=== PATIENT | female | born 1940 | race Caucasian/White ===

== ENCOUNTER 2018-03-22 08:02 | Inpatient (IN) | payer MEDICARE ==
--- NOTE | 2018-03-22 08:22 | CT ---
CT BRAIN WITHOUT CONTRAST: Date: 03/22/18 HISTORY: Right-sided upper extremity weakness and numbness. FINDINGS: No evidence of infarct, hemorrhage, midline shift, or abnormal extra-axial fluid collections are seen . The ventricular size is appropriate and the basilar cisterns are patent. The bony calvarium is inta ct. The visualized paranasal sinuses and mastoid air cells are well aerated. IMPRESSION: No CT evidence of acute intracranial process. Discussed over the telephone with ER physician, Dr. Jay, at 0811 hours. CODE CR. POS: [facility]
[2018-03-22 08:34] LABS: #Eosinphils 0.1 thou/uL (0.0-0.7); #Lymphocytes 1.6 thou/uL (1.20-3.40); #Neutrophils 4.5 thou/uL (1.40-6.50); %Basophils 0.6 % (0.0-1.0); %Lymphocytes 21.7 % (21.0-51.0); %Monocytes 13.3 % (0.0-10.0); %Neutrophils 62.4 % (42.0-75.0); Hemoglobin 13.4 g/dL (12.0-16.0); Mean Corpuscular HGB CONC 33.5 g/dL (32.0-36.0); Mean Corpuscular Hemoglobin 31.8 pg (27.0-31.0); Mean Platelet Volume 7.4 fL (7.4-10.4); Platelet Count 205 thou/uL (130-400); RBC Distribution Width 12.7 % (11.5-14.5); White Blood Cell (WBC) Count 7.2 thou/uL (4.8-10.8)
[2018-03-22 08:48] LABS: PTT 25.4 SEC (22.9-36.1); Prothrombin Time 12.9 SEC (12.0-14.7)
[2018-03-22 08:49] LABS: ALT (SGPT) 13 U/L (8-55); AST (SGOT) 17 U/L (5-34); Albumin 3.9 g/dL (3.4-4.8); Alkaline Phosphatase 60 U/L (40-150); Anion Gap 13 mmol/L (10-20); BUN (Urea Nitrogen) 22 mg/dL (9.8-20.1); Bilirubin, Total 0.6 mg/dL (0.2-1.2); CK (CPK) 44 U/L (29-168); Calc. Creatinine Clearance 0 mL/min (70-130); Calcium 9.2 mg/dL (7.8-10.44); Carbon Dioxide 25 mmol/L (23-31); Chloride 95 mmol/L (98-107); Estimated GFR-MDRD 54; Globulin 2.9 g/dL (2.4-3.5); Glucose 92 mg/dL (83-110); Potassium 3.9 mmol/L (3.5-5.1); Protein, Total 6.8 g/dL (6.0-8.3); Sodium 129 mmol/L (136-145)
--- NOTE | 2018-03-22 08:50 | CT ---
CTA HEAD WITH IV CONTRAST AND 3D POSTPROCESSING CTA NECK WITH IV CONTRAST AND 3D POSTPROCESSING: Date: 03/22/18 HISTORY: Stroke symptoms, right hand numbness. FINDINGS: There is good flow in the vertebrobasilar and carotid artery systems bilaterally. No significant sten osis, major branch occlusion, or aneurysm formation is seen. Vascular calcifications are present. There are degenerative changes in the spine. There is a small air fluid level in the right maxillary sinus. The airway is patent. There is evidence of old granulomatous disease in the upper chest. Parot id and submandibular glands are normal. No cervical lymphadenopathy seen. IMPRESSION: No evidence of high grade stenosis, major branch occlusion, or aneurysm formation. Discussed over the telephone with ER physician, Dr. Jay, and 0830 hours. CODE CR. POS: [facility]
[2018-03-22] MEDS ORDERED: Ondansetron PF 4 MG/2 ML Vial IVP PRN (10:00)
[2018-03-22] MEDS ORDERED: Acetaminophen 325 MG TAB PO PRN (10:00)
[2018-03-22] MEDS ORDERED: Ondansetron ODT 4 MG TAB SL PRN (10:00)
[2018-03-22 11:35] VITALS: BMI 29.6
[2018-03-22] MEDS ORDERED: Guaifenesin DM 100-10/5 ML UDCUP PO PRN (13:19)
[2018-03-22] MEDS ORDERED: Senokot S 8.6-50 MG TAB PO PRN (13:19)
[2018-03-22] MEDS: Sodium Chloride 0.9% 1,000 ML IV SCH (14:01)
--- NOTE | 2018-03-22 14:14 | HP ---
REASON FOR ADMISSION: Acute CVA with right upper extremity weakness. HISTORY OF PRESENTING ILLNESS: The patient gives history of getting up around 6:00 in the morning. She felt normal. An hour later, the patient was trying to grab some milk from her refrigerator and was not able to hold in her right hand. She also felt numbness and paresthesias in the right upper extremity all the way from shoulder. She has been having cramps in both lower extremities off and on for last few days at night. No history of diarrhea or nausea. As this lasted for a few minutes, the patient got concerned that she might be having a stroke, hence came to emergency room. The patient still has paresthesias in the right hand and feels that her strength is not the same as the left. She is a right-handed person. On arrival, the patient had blood pressures of 214/86. at bedside adds that from last one month or so, her blood pressure has been creeping up. From last week, she started Benicar HCT for hypertension. She normally runs 120/70. This is something new from last one month. No personal stress in the family. She has also had nasal congestion and stuffiness from last 3 to 4 weeks now. She thinks it is allergies. PAST MEDICAL AND SURGICAL HISTORY: Hypertension, eczema. No prior surgical history. No prior cardiac workup including stress test. No prior stroke or TIA. No history of colonoscopy. CURRENT MEDICATIONS: 1. Benicar HCT 20/12.5 mg p.o. daily. 2. Hydroxyzine 10 mg p.o. twice daily. ALLERGIES: NO KNOWN DRUG ALLERGIES. PERSONAL HISTORY: Does not abuse alcohol or drugs. No history of smoking. She lives with her . FAMILY HISTORY: Mother at the age of 85 years. She of natural causes. Father at the age of 80. He has had history of ND, TIAs, and colon cancer. Code status is full. is power of finance attorney. REVIEW OF SYSTEMS: CONSTITUTIONAL: Negative for weight loss or gain, ability to conduct usual activities. SKIN: Negative for rash, itching. EYES: Negative for double vision, pain. ENT/MOUTH: Negative for nose bleeding, neck stiffness, pain, tenderness. CARDIOVASCULAR: Negative for palpitations, dyspnea on exertion, orthopnea. RESPIRATORY: Negative for shortness of breath, wheezing, cough, hemoptysis, fever or night sweats. GASTROINTESTINAL: Negative for poor appetite, abdominal pain, heartburn, nausea, vomiting, constipation, or diarrhea. GENITOURINARY: Negative for urgency, frequency, dysuria, nocturia. MUSCULOSKELETAL: Negative for pain, swelling. NEUROLOGIC/PSYCHIATRIC: Negative for anxiety, depression. ALLERGY/IMMUNOLOGIC: Negative for skin rash, bleeding tendency. PHYSICAL EXAMINATION: GENERAL: The patient is a 77-year-old female who is currently not in any acute distress. VITAL SIGNS: Blood pressure 185/80, pulse 70 per minute, respiratory rate 20 per minute, temperature 98.3 degrees Fahrenheit, saturating 97% on room air. On arrival, her blood pressure was 214/86. NECK: Supple. No elevated JVD. EYES: Extraocular muscles intact. Pupils reacting to light. Oral cavity, mucous membranes are dry. No exudates or congestion. CARDIOVASCULAR: S1 and S2 heard. Regular rhythm. RESPIRATORY: Air entry 1+ bilateral. No rales or rhonchi. ABDOMEN: Soft. Bowel sounds heard. No tenderness, rigidity, or guarding. EXTREMITIES: No peripheral edema or calf tenderness. VASCULAR: Peripheral pulses 2+ bilateral. No ischemic ulcerations or gangrene. CENTRAL NERVOUS SYSTEM: Mild facial droop seen on the left side. Cranial nerves otherwise grossly intact. Motor system, strength is 4 to 5/5 in the right upper extremity when compared to the left. Both lower extremity strength is 5/5. Reflexes are 2+ bilateral. Babinski is downgoing. Sensory system grossly intact to touch. Gait was not tested. PSYCHIATRIC: The patient is a bit anxious, otherwise no hallucinations or delusions. LABORATORY DATA: EKG done shows normal sinus rhythm at 77 beats per minute with the signs of LVH seen. White count of 7, hemoglobin and hematocrit 13 and 39, platelet count 205, MCV is 95 with 62% neutrophils. PT, INR, PTT within normal limits. Serum sodium is 129, chloride 95, serum bicarbonate 25, BUN 22, creatinine 1.0, serum glucose 92. Liver enzymes within normal limits. First set of cardiac enzymes are negative. Albumin is 3.9. CT angio brain shows no high-grade stenosis, major branch occlusion, or aneurysm formation either in the brain or the carotids. CT of brain done shows no acute intracranial process. CLINICAL IMPRESSION AND PLAN: The patient will be admitted to stroke unit for hypertensive emergency with right upper extremity mild paresis when compared to left. The patient is a right-handed person. She also appears to have air fluid levels seen. A small air-fluid level is seen in the right maxillary sinus. She will be on stroke evidence based protocol. She will be on full-dose aspirin, Lipitor. The patient has mild hyponatremia and also her MCV is around 95. We will obtain B12 and folic acid levels. She will be on Procardia XL, small dose of Lopressor and Benicar. We will hold hydrochlorothiazide in view of hyponatremia. Echo with 2D Doppler for left ventricular function. An MRI brain without contrast will be obtained. Augmentin for left maxillary sinusitis. Serum and urine osmolalities will be obtained now and TSH level in the morning. Lipid profile in the morning as well. We will continue to closely monitor her on stroke unit. Job ID: [id number]
--- NOTE | 2018-03-22 15:31 | MRI ---
MRI BRAIN WITHOUT CONTRAST: DATE: 03/22/18 HISTORY: Right hand weakness that is getting better. FINDINGS: There is a small area of restricted diffusion in the left anterior parietal cortex. Multiple foci of T2 prolongation in the periventricular white matter consistent with chronic small vessel ischemic dis ease. No evidence of hemorrhage, midline shift, or abnormal extra-axial fluid collections are seen. T here is mucosal disease in the paranasal sinuses. IMPRESSION: Small, acute left parietal lobe cortical infarction. POS: [facility]
[2018-03-22] MEDS ORDERED: Clopidogrel Bisulfate 75 MG TAB PO SCH (16:45)
[2018-03-22] MEDS: Acetaminophen 325 MG TAB PO PRN ×2 (17:14→22:20)
[2018-03-22] MEDS: Atorvastatin Calcium 40 MG TAB PO SCH (21:08)
[2018-03-22] MEDS: Metoprolol Tartrate 25 MG TAB PO SCH (21:08)
[2018-03-22] MEDS: Amoxicillin/Potassium Clav 875 MG TAB PO SCH (21:08)
[2018-03-22] MEDS: Famotidine 20 MG TAB PO SCH (21:08)
[2018-03-23] MEDS: Sodium Chloride 0.9% 1,000 ML IV SCH (01:54)
[2018-03-23 06:16] LABS: #Basophils 0.1 thou/uL (0.0-0.2); #Eosinphils 0.2 thou/uL (0.0-0.7); #Lymphocytes 1.6 thou/uL (1.20-3.40); #Monocytes 0.6 thou/uL (0.11-0.59); #Neutrophils 3.8 thou/uL (1.40-6.50); %Basophils 1.2 % (0.0-1.0); %Eosinophils 2.5 % (0.0-10.0); %Lymphocytes 25.9 % (21.0-51.0); %Monocytes 9.9 % (0.0-10.0); %Neutrophils 60.6 % (42.0-75.0); Hemoglobin 13.3 g/dL (12.0-16.0); Mean Corpuscular HGB CONC 33.9 g/dL (32.0-36.0); Mean Corpuscular Hemoglobin 32.1 pg (27.0-31.0); Mean Corpuscular Volume 94.5 fL (78.0-98.0); Mean Platelet Volume 7.7 fL (7.4-10.4); Platelet Count 203 thou/uL (130-400); RBC Distribution Width 12.6 % (11.5-14.5); Red Blood Cell (RBC) Count 4.15 mill/uL (4.20-5.40); White Blood Cell (WBC) Count 6.2 thou/uL (4.8-10.8)
[2018-03-23 06:38] LABS: Anion Gap 10 mmol/L (10-20); BUN (Urea Nitrogen) 14 mg/dL (9.8-20.1); Calc. Creatinine Clearance 82 mL/min (70-130); Carbon Dioxide 23 mmol/L (23-31); Cardiac Risk 2.5 (Less than 4.5); Chloride 102 mmol/L (98-107); Cholesterol 171 mg/dl (< 200 Desired); Estimated GFR-MDRD 71; Glucose 91 mg/dL (83-110); HDL Cholesterol 69 mg/dL (>60 Neg Risk); LDL Cholesterol, Calculated 94 mg/dL; Potassium 3.9 mmol/L (3.5-5.1); Sodium 131 mmol/L (136-145); Triglycerides 42 mg/dL (Less than 150)
[2018-03-23] MEDS ORDERED: Aspirin 325 mg Enteric Coated Tablet PO SCH (09:00)
[2018-03-23] MEDS: Amoxicillin/Potassium Clav 875 MG TAB PO SCH ×2 (10:24→20:36)
[2018-03-23] MEDS: NIFEdipine XL 30 MG TAB PO SCH (10:25)
[2018-03-23] MEDS: Famotidine 20 MG TAB PO SCH ×2 (10:27→20:36)
[2018-03-23] MEDS: Metoprolol Tartrate 25 MG TAB PO SCH ×2 (10:28→20:36)
[2018-03-23] MEDS: Clopidogrel Bisulfate 75 MG TAB PO SCH (10:28)
[2018-03-23] MEDS: Enoxaparin Sodium 40 MG/0.4 ML SYRINGE SC SCH (10:31)
--- NOTE | 2018-03-23 10:49 | PDOC.PN ---
- Subjective Encounter Start Date: 03/23/18 Encounter Start Time: 09:00 Subjective: her right hand is feeling better and improving with little parasthesias now -: is wanting to go home -: at bedside, pt is walking, no difficulty eating - Objective Resuscitation Status - Order Detail: 03/22/18 13:15 Resuscitation Status Routine Resuscitation Status: FULL: Full Resuscitation MAR Reviewed: Yes Vital Signs & Weight: Vital Signs (12 hours) Temp Pulse Resp BP BP Pulse Ox 03/23/18 10:25 70 177/73 H 03/23/18 08:01 97.9 F 72 20 149/79 H 97 03/23/18 03:52 98.6 F 69 16 159/79 H 97 03/23/18 00:00 98.5 F 68 16 155/82 H 93 L Weight Weight 189 lb 2 oz I&O: 03/22/18 03/23/18 03/24/18 06:59 06:59 06:59 Intake Total 600 Balance 600 Result Diagrams: 03/23/18 06:08 03/23/18 06:08 Phys Exam - Physical Examination HEENT: PERRLA, moist MMs Neck: no JVD, supple Respiratory: no wheezing, no rales Cardiovascular: RRR, no significant murmur Gastrointestinal: soft, non-tender, positive bowel sounds Musculoskeletal: no edema, pulses present Right UE parasthesias, strength almost equal to left side Psychiatric: normal affect, A&O x 3 Dx/Plan (1) Acute CVA (cerebrovascular accident) Code(s): I63.9 - CEREBRAL INFARCTION, UNSPECIFIED Status: Acute Comment: left parietal cva (2) Hypertensive emergency Code(s): I16.1 - HYPERTENSIVE EMERGENCY Status: Resolved - Plan is on plavix, lopressor, procardia and lipitor -: await echo results, neuro consult -: likely dc plan when echo is resulted * . Review of Systems - Medications/Allergies Allergies/Adverse Reactions: Allergies Allergy/AdvReac Type Severity Reaction Status Date / Time No Known Allergies Allergy Verified 03/22/18 11:42 Medications: Current Medications Acetaminophen (Tylenol) 650 mg PO Q4H PRN PRN Reason: Headache/Fever/Mild Pain (1-3) Last Admin: 03/22/18 22:20 Dose: 650 mg Amoxicillin/Clavulanate Potassium (Augmentin) 875 mg PO Q12HR [facility] Last Admin: 03/23/18 10:24 Dose: 875 mg Atorvastatin Calcium (Lipitor) 40 mg PO HS [facility] Last Admin: 03/22/18 21:08 Dose: 40 mg Clopidogrel Bisulfate (Plavix) 75 mg PO DAILY [facility] Last Admin: 03/23/18 10:28 Dose: 75 mg Enoxaparin Sodium (Lovenox) 40 mg SC 0900 [facility] Last Admin: 03/23/18 10:31 Dose: 40 mg Famotidine (Pepcid) 20 mg PO BID [facility] Last Admin: 03/23/18 10:27 Dose: 20 mg Guaifenesin/Dextromethorphan (Robitussin Dm) 15 ml PO Q4H PRN PRN Reason: Cough Metoprolol Tartrate (Lopressor) 25 mg PO BID [facility] Last Admin: 03/23/18 10:28 Dose: 25 mg Nifedipine (Procardia Xl) 30 mg PO DAILY [facility] Last Admin: 03/23/18 10:25 Dose: 30 mg Olmesartan (Benicar) 20 mg PO DAILY [facility] Last Admin: 03/23/18 10:22 Dose: 20 mg Senna/Docusate Sodium (Senokot S) 2 tab PO BID PRN PRN Reason: Constipation Sodium Chloride (Flush - Normal Saline) 10 ml IVF PRN PRN PRN Reason: Saline Flush
[2018-03-23] MEDS: Atorvastatin Calcium 40 MG TAB PO SCH (20:36)
[2018-03-23] MEDS: Acetaminophen 325 MG TAB PO PRN (21:05)
[2018-03-24] MEDS: Acetaminophen 325 MG TAB PO PRN ×2 (04:25→09:16)
[2018-03-24 08:16] VITALS: TEMP 98
[2018-03-24] MEDS: Enoxaparin Sodium 40 MG/0.4 ML SYRINGE SC SCH (09:14)
[2018-03-24] MEDS: Metoprolol Tartrate 25 MG TAB PO SCH (09:15)
[2018-03-24] MEDS: Clopidogrel Bisulfate 75 MG TAB PO SCH (09:15)
[2018-03-24] MEDS: Amoxicillin/Potassium Clav 875 MG TAB PO SCH (09:15)
[2018-03-24] MEDS: NIFEdipine XL 30 MG TAB PO SCH (09:16)
[2018-03-24] MEDS: Famotidine 20 MG TAB PO SCH (09:16)
--- NOTE | 2018-03-24 10:20 | PDOC.PN ---
- Subjective Encounter Start Date: 03/24/18 Encounter Start Time: 09:00 Subjective: feels good, is amb in hallway - Objective Resuscitation Status - Order Detail: 03/22/18 13:15 Resuscitation Status Routine Resuscitation Status: FULL: Full Resuscitation MAR Reviewed: Yes Vital Signs & Weight: Vital Signs (12 hours) Temp Pulse Resp BP BP Pulse Ox 03/24/18 09:16 70 149/76 H 03/24/18 08:00 98.0 F 70 18 149/76 H 96 03/24/18 04:00 98.4 F 69 18 125/71 96 03/24/18 00:00 98.4 F 70 18 128/69 93 L Weight Weight 189 lb 2 oz I&O: 03/23/18 03/24/18 03/25/18 06:59 06:59 06:59 Intake Total 600 2340 240 Balance 600 2340 240 Result Diagrams: 03/23/18 06:08 03/23/18 06:08 Phys Exam - Physical Examination HEENT: PERRLA, moist MMs Neck: no JVD, supple Respiratory: no wheezing, no rales Cardiovascular: RRR, no significant murmur Gastrointestinal: soft, non-tender, positive bowel sounds Musculoskeletal: no edema, pulses present Neurological: moves all 4 limbs Psychiatric: normal affect, A&O x 3 Dx/Plan (1) Acute CVA (cerebrovascular accident) Code(s): I63.9 - CEREBRAL INFARCTION, UNSPECIFIED Status: Acute Comment: left parietal cva (2) Hypertensive emergency Code(s): I16.1 - HYPERTENSIVE EMERGENCY Status: Resolved - Plan hemostable -: dc pt home -: to f/u with PCP in 1 week * .
[2018-03-24 11:09] VITALS: BP 153/78
--- NOTE | 2018-03-24 13:05 | DIS ---
DATE OF ADMISSION: 03/22/2018 DATE OF DISCHARGE: 03/24/2018 DISCHARGE DISPOSITION: Home. PRIMARY DISCHARGE DIAGNOSES: 1. Acute left parietal cerebrovascular accident with right upper extremity paresthesias. 2. Hypertensive emergency on arrival, stable at present. PROCEDURES DONE DURING HOSPITALIZATION: 1. MRI brain showed small acute left parietal lobe cortical infarct. 2. CT angio of brain and neck done showed no high-grade stenosis, major branch occlusion, or aneurysm formation. 3. Echo with 2D Doppler showed EF of 55%-60%, moderate mitral regurgitation, moderate tricuspid regurgitation. No thrombus was seen in the cardiac chambers. 4. H and H 13 and 39, platelet count 203. Total cholesterol 171, triglycerides 42, LDL 94. HDL 69, TSH 3.65, BUN 14, creatinine 0.7. DISCHARGE MEDICATION: 1. Augmentin 875 mg p.o. twice daily for another five days for maxillary sinusitis. 2. Lipitor 10 mg daily. 3. Plavix 75 mg daily. 4. Metoprolol 25 mg twice daily. 5. Procardia XL 30 mg daily. 6. Olmesartan 20 mg daily. ALLERGIES: NO KNOWN DRUG ALLERGIES. DISCHARGE PLAN: The patient to follow up with primary care physician in one week. BRIEF COURSE DURING HOSPITALIZATION: The patient initially came in with complaints of right upper extremity weakness and paresthesias. She was essentially admitted to stroke unit for acute CVA. The patient also had systolic blood pressures of 214 and had hypertensive emergency. Her blood pressure was slowly deescalated in view of acute CVA. MRI done confirmed left parietal cortical infarct. Her hypertension is currently stable at the time of discharge. Echo with 2D Doppler done showed good ejection fraction with no thrombus. She is ambulating without any assistance in the hallway prior to discharge. The patient is to follow up with her primary care physician in one week. She is hemodynamically and neurologically stable prior to discharge. Job ID: [id number]
== END 2018-03-24 11:22 | disposition home or self-care (01) | DRG 65 ==
LOC: ERS 08:02 → 2SE 11:17
PROVIDERS: ADMIT Internal Medicine; ATTEND Internal Medicine
DX: I63.9 Cerebral infarction, unspecified (principal); I16.1 Hypertensive emergency; Z79.899 Other long term (current) drug therapy; R20.2 Paresthesia of skin; R29.701 NIHSS score 1
CPT/HCPCS: 36415; 36416; 70450; 70496; 70498; 70551; 80048; 80053; 80061; 82550; 83930; 83935; 84443; 84484; 85025; 85610; 85730; 90471; 90662; 93005; 93306; 94760; 96374; G0008; G8978-GP-CI; G8979-GP-CH; G8987-GO-CI; G8988-GO-CI; G8989-GO-CI; G9162-GN-CH; G9163-GN-CH; J1650; J3490

== ENCOUNTER 2020-02-08 09:59 | Inpatient (IN) | payer MEDICARE ==
[2020-02-08] MEDS ORDERED: Morphine 4 MG/ML VIAL ONE (10:58)
[2020-02-08] MEDS ORDERED: Ondansetron PF 4 MG/2 ML Vial ONE (10:59)
--- NOTE | 2020-02-08 11:00 | RAD ---
XR Hip Rt 2-3 View History: Fall Comparison: None. Findings: Mid cervical right femoral neck fracture with mild varus angulation and foreshortening. Obt urator ring is intact. Impression: Mid cervical right femoral neck fracture.
[2020-02-08 11:10] LABS: #Eosinphils 0.1 thou/uL (0.0-0.7); #Lymphocytes 0.8 thou/uL (1.20-3.40); #Monocytes 0.5 thou/uL (0.11-0.59); %Basophils 0.3 % (0.0-1.0); %Eosinophils 2.2 % (0.0-10.0); %Monocytes 7.6 % (0.0-10.0); %Neutrophils 77.9 % (42.0-75.0); Hemoglobin 12.3 g/dL (12.0-16.0); Mean Corpuscular HGB CONC 34.6 g/dL (32.0-36.0); Mean Corpuscular Hemoglobin 32.2 pg (27.0-31.0); Mean Corpuscular Volume 93.3 fL (78.0-98.0); Mean Platelet Volume 7.7 fL (7.4-10.4); Platelet Count 222 thou/uL (130-400); RBC Distribution Width 11.7 % (11.5-14.5); Red Blood Cell (RBC) Count 3.82 mill/uL (4.20-5.40); White Blood Cell (WBC) Count 6.5 thou/uL (4.8-10.8)
[2020-02-08 11:13] LABS: INR-International Normal Ratio 0.9; Prothrombin Time 12.1 sec (12.0-14.7)
[2020-02-08 11:20] LABS: ALT (SGPT) 12 U/L (8-55); AST (SGOT) 21 U/L (5-34); Albumin 3.8 g/dL (3.4-4.8); Alkaline Phosphatase 63 U/L (40-110); Anion Gap 11 mmol/L (10-20); BUN (Urea Nitrogen) 8 mg/dL (9.8-20.1); Bilirubin, Total 0.4 mg/dL (0.2-1.2); Calc. Creatinine Clearance 0 mL/min (70-130); Calcium 9.1 mg/dL (7.8-10.44); Carbon Dioxide 27 mmol/L (23-31); Chloride 89 mmol/L (98-107); Glucose 112 mg/dL (83-110); Potassium 3.7 mmol/L (3.5-5.1); Protein, Total 6.8 g/dL (6.0-8.3); Sodium 123 mmol/L (136-145)
[2020-02-08] MEDS ORDERED: Labetalol HCl 100 MG/20 ML VIAL ONE (11:22)
[2020-02-08 11:41] LABS: Bilirubin Negative (Negative); Blood, Urine Negative (Negative); Clarity Clear (Clear); Glucose, Urine (Dipstick) Normal (Negative); Ketone, Urine Negative (Negative); Leukocyte 25 Leu/uL (Negative); Nitrite Negative (Negative); Protein, Urine (Dipstick) Negative (Neg-Trace); RBC/HPF 0-3 HPF (0-3); Specific Gravity, Urine 1.004 (1.002-1.036); Squamous Epithelial 0-3 HPF (0-3); Urobilinogen Normal mg/dL (Less than 2); pH, Urine 7.5 (5.0-9.0)
[2020-02-08 11:42] LABS: Bacteria/HPF 1+ HPF (None Seen)
[2020-02-08] MEDS ORDERED: Morphine 2 MG/ML VIAL SLOW IVP PRN (11:51)
[2020-02-08] MEDS ORDERED: Ondansetron PF 4 MG/2 ML Vial IVP PRN (11:51)
[2020-02-08] MEDS ORDERED: Dextrose 5% in Water 1,000 ML IV PRN (11:51)
[2020-02-08] MEDS ORDERED: Dextrose 50% Abboject 50 ML SYRINGE SLOW IVP PRN (11:51)
[2020-02-08] MEDS ORDERED: Cyclobenzaprine 10 MG TAB PO PRN (11:58)
[2020-02-08] MEDS ORDERED: Ibuprofen 800 MG TAB PO PRN (11:58)
[2020-02-08] MEDS ORDERED: traMADol HCl 50 MG TAB PO PRN (11:58)
[2020-02-08] MEDS ORDERED: traMADol HCl 50 MG TAB PO SCH (12:00)
[2020-02-08] MEDS ORDERED: Sodium Chloride 0.9% 1,000 ML IV SCH ×3 (12:00→22:00)
--- NOTE | 2020-02-08 12:09 | RAD ---
Chest AP view INDICATION: Preop evaluation COMPARISON: September 01, 2009 FINDINGS: Lungs: No definite airspace consolidation is evident. There is mild subsegmental volume loss involvi ng both lower lobes. Cardiac silhouette: There is moderate cardiomegaly Pulmonary vasculature: Normal Pleural spaces: No pleural effusion or pneumothorax is demonstrated. Upper abdomen: No abnormality seen. Osseous structures: No acute osseous abnormality. Additional findings: None. IMPRESSION: Moderate cardiomegaly without evidence of cardiac decompensation. Subsegmental volume loss within bot h lower lobes.
[2020-02-08 12:55] LABS: Magnesium 1.7 mg/dL (1.6-2.6)
[2020-02-08 13:31] LABS: Phosphorus 1.9 mg/dL (2.3-4.7)
[2020-02-08 13:55] VITALS: BMI 27.6
[2020-02-08] MEDS ORDERED: SODIUM PHOSPHATE IVPB SCH (14:00)
[2020-02-08] MEDS ORDERED: Potassium Chloride 20 MEQ in Premix Bag 1 BAG IVPB SCH (14:00)
[2020-02-08] MEDS ORDERED: POTASSIUM CHLORIDE IVPB SCH (14:00)
[2020-02-08] MEDS ORDERED: [UNRECOGNIZED DRUG - OTHER] IVPB SCH (14:00)
[2020-02-08] MEDS: Acetaminophen 500 MG TAB PO SCH ×2 (14:11→17:06)
[2020-02-08] MEDS ORDERED: CEFAZOLIN 2 GM in Premix Bag 1 BAG IVPB SCH (16:45)
[2020-02-08] MEDS ORDERED: Magnesium 2 GM/50 ML 2 GM in Premix Bag 1 BAG IVPB SCH (16:45)
--- NOTE | 2020-02-08 16:56 | HP ---
This is Ethel Abel NP dictating a report for Adrian Hughes DO. REQUESTING PHYSICIAN: Kesha Lowe NP. CONSULTS: Orthopedic Surgery, Dr. Butler. CHIEF COMPLAINT: Mechanical fall, right hip pain. HISTORY OF PRESENT ILLNESS: This is a 79-year-old female with past medical history of hypertension and cerebral vascular accident in 2018, who presented to the emergency room after she tripped and fell. The patient states she was ambulating when her slipper got caught causing her to trip falling onto her right side. The patient denies hitting her head or losing consciousness. The patient denies any other injuries other than her right hip pain. The patient denies feeling weak, dizzy, short of breath or having chest pain prior to tripping and falling. The patient states that she is active and does not use any assistive devices to ambulate. The patient walks approximately 1-2 miles a day without becoming short of breath. The patient does report some balance issues since her stroke. The patient was evaluated in the emergency room and found to have a right femoral neck fracture. The patient does take Plavix daily in which her last dose was 6 a.m. this morning. The patient also took all of her medications including her blood pressure pills this morning and she last ate approximately at 5:30 this morning. The pain is currently controlled at this time. Orthopedic Surgery was consulted and Trauma Services was asked to admit the patient. The patient did arrive in the emergency room hypertensive and labetalol was given IV. The patient was also given a normal saline 500 mL bolus. REVIEW OF SYSTEMS: A 10-point review of systems is negative unless otherwise indicated in the above HPI. PAST MEDICAL HISTORY: Hypertension, eczema, cerebral vascular accident in 2018. PAST SURGICAL HISTORY: Denies. SOCIAL HISTORY: The patient lives in [place] with her . Denies alcohol use, denies illicit drug use, denies history of smoking. ALLERGIES: NO KNOWN DRUG ALLERGIES. CURRENT MEDICATIONS: Include: 1. Atorvastatin. 2. Metoprolol. 3. Plavix 75 mg q.a.m. PHYSICAL EXAMINATION: VITAL SIGNS: Blood pressure 176/83, pulse 77, respirations 20, temperature 98.9, SpO2 96% on room air. GENERAL: Well appearing elderly female awake, alert, in no distress, sitting up in bed. HEENT: Head is atraumatic and normocephalic. Pupils are equal bilateral, mucous membranes moist. NECK: No cervical spine tenderness. Normal range of motion of neck, trachea midline. No JVD. RESPIRATORY: Bilateral breath sounds clear, no wheezing, rales, or rhonchi. CARDIAC: Regular rate, regular rhythm, no murmurs, no pedal edema. ABDOMEN: Soft, nontender, nondistended. No guarding or rigidity. EXTREMITIES: Moves all extremities, neurovascularly intact x4, right lower extremity is mildly shortened. NEUROLOGIC: No focal deficits. GCS 15. LABORATORY DATA: WBC 6.5, RBC 3.82, hemoglobin 12.3, hematocrit 35.6. Sodium 123, potassium 3.7, chloride 89, BUN 8, creatinine 0.84, estimated GFR 66, glucose 112, calcium 9.1, phosphorus 1.9, magnesium 1.7, AST 21, ALT 12, alkaline phos 63. Troponin I less than 0.010, albumin 3.8. PT 12.1, INR 0.9, APTT 32.14. Urine grew positive leukocyte esterase, positive wbc 4 to 6, 1+ bacteria. Urine culture pending. 12-lead EKG: Impression: Sinus rhythm, rate 79, no ST or T-wave abnormalities. Right hip x-ray: Impression: Mid cervical right femoral neck fracture with mild varus angulation and shortening. Obturator ring is intact. Chest x-ray: Impression: There is moderate cardiomegaly. No effusion. Segmental volume loss within both lower lobes. ASSESSMENT: 1. Status post mechanical fall from standing. 2. Right femoral neck fracture. 3. Acute traumatic pain secondary to above. 4. Hyponatremia, chronic. 5. Cardiomegaly. 6. Urinary tract infection on admission. 7. History of hypertension and cerebral vascular accident. PLAN: Admit to the surgical floor. Regular diet as tolerated. Maintenance IV fluids normal saline 75 mL an hour. N.p.o. at midnight with plans for Orthopedic Surgery to take the patient to the OR for repair of the right femoral neck fracture. We will hold patient's Plavix. We will restart patient's hypertensive medication with hold parameters. Pain control. We will have PT and OT evaluate and treat postop. The patient will likely need inpatient rehab postop for continued physical and occupational therapy. Antibiotics for urinary tract infection and we will adjust when cultures return. 1 liter free waer restriction daily for hyponatremia. Repeat labs in the morning. The plan was discussed with the patient's who agrees. The plan was discussed with the attending who agrees. Job ID: [id number] [id number]
[2020-02-08] MEDS: hydrALAZINE 25 MG TAB PO SCH (17:06)
--- NOTE | 2020-02-08 17:16 | CON ---
DATE OF CONSULTATION: 02/08/2020 REQUESTING PHYSICIAN: Adrian Hughes DO CONSULTING PHYSICIAN: Houston Butler MD REASON FOR CONSULTATION: Right hip displaced femoral neck fracture. BRIEF CLINICAL HISTORY: Tatyana is a 79-year-old female who had a mechanical ground-level fall earlier this morning. She landed on her right hip, resulting in immediate pain. EMS was dispatched. The patient was brought to [facility] where plain radiographs confirmed a displaced femoral neck fracture. She is being admitted by the trauma team, and our service is being consulted for definitive orthopedic surgical management of this problem. PAST MEDICAL HISTORY: Significant for: 1. Hypertension. 2. Prior CVA with right-sided weakness. PAST SURGICAL HISTORY: Noncontributory. MEDICATIONS: She does take an antihypertensive. ALLERGIES: NO KNOWN DRUG ALLERGIES. SHE DENIES ANY CONTACT ALLERGIES. SOCIAL HISTORY: She is . She and her are retired. She lives locally. She denies any ethanol, tobacco, or illicit drug abuse. PHYSICAL EXAMINATION: VITAL SIGNS: See nurse's notes. HEENT: Head is normocephalic and atraumatic. Pupils equally round and reactive to light. Oropharynx is benign. CHEST: Clear to auscultation. HEART: Regular rhythm. ABDOMEN: Soft and benign. EXTREMITIES: Shortening in external rotation of the right lower extremity relative to the left is noted. The patient also keeps the hip in a flexed position for comfort. She is neurovascularly intact in the right lower extremity with full digital excursion. Distal pulses are +2 and good sensation. IMAGING STUDIES: Two views of right hip demonstrate a displaced femoral neck fracture, mid cervical in nature. IMPRESSION: 1. Right hip midcervical displaced femoral neck fracture. 2. Hypertension. 3. Residual weakness secondary to remote cerebrovascular accident. PLAN: 1. The risks, benefits, options, alternatives, and rationale for proceeding with a right hip hemiarthroplasty have been explained in great detail to the patient. She is ready to proceed. All questions were answered. No guarantee of outcome stated or implied. 2. N.p.o. after midnight. 3. Ancef 2 g on-call to OR. 4. Hold Plavix. 5. Please see orders. Job ID: [id number]
[2020-02-08] MEDS: traMADol HCl 50 MG TAB PO SCH (20:20)
[2020-02-08] MEDS: Famotidine 20 MG TAB PO SCH (20:21)
[2020-02-08] MEDS: Senokot S 8.6-50 MG TAB PO SCH (20:22)
[2020-02-08] MEDS: Sulfameth/Trimethoprim DS 800-160mg TAB PO SCH (20:22)
[2020-02-08] MEDS: Metoprolol Tartrate 25 MG TAB PO SCH (20:22)
[2020-02-08] MEDS: hydrOXYzine 10 MG TAB PO SCH (20:22)
[2020-02-08] MEDS ORDERED: Famotidine 20 MG TAB PO SCH (21:00)
[2020-02-09] MEDS: Acetaminophen 500 MG TAB PO SCH ×5 (00:04→23:48)
[2020-02-09] MEDS: hydrALAZINE 25 MG TAB PO SCH ×5 (00:04→23:48)
[2020-02-09] MEDS: traMADol HCl 50 MG TAB PO SCH ×4 (02:07→20:31)
[2020-02-09 06:40] LABS: #Eosinphils 0.2 thou/uL (0.0-0.7); #Lymphocytes 0.7 thou/uL (1.20-3.40); #Monocytes 0.5 thou/uL (0.11-0.59); #Neutrophils 11.9 thou/uL (1.40-6.50); %Basophils 0.1 % (0.0-1.0); %Eosinophils 1.3 % (0.0-10.0); %Lymphocytes 5.2 % (21.0-51.0); %Monocytes 3.8 % (0.0-10.0); %Neutrophils 89.6 % (42.0-75.0); Hemoglobin 11.7 g/dL (12.0-16.0); Mean Corpuscular HGB CONC 34.5 g/dL (32.0-36.0); Mean Corpuscular Hemoglobin 32.3 pg (27.0-31.0); Mean Corpuscular Volume 93.4 fL (78.0-98.0); Mean Platelet Volume 7.6 fL (7.4-10.4); Platelet Count 190 thou/uL (130-400); RBC Distribution Width 11.7 % (11.5-14.5); Red Blood Cell (RBC) Count 3.64 mill/uL (4.20-5.40); White Blood Cell (WBC) Count 13.3 thou/uL (4.8-10.8)
[2020-02-09 07:14] LABS: Anion Gap 11 mmol/L (10-20); BUN (Urea Nitrogen) 7 mg/dL (9.8-20.1); Calc. Creatinine Clearance 72 mL/min (70-130); Calcium 8.1 mg/dL (7.8-10.44); Carbon Dioxide 24 mmol/L (23-31); Chloride 88 mmol/L (98-107); Glucose 94 mg/dL (83-110); Potassium 3.8 mmol/L (3.5-5.1); Sodium 119 mmol/L (136-145)
[2020-02-09] MEDS ORDERED: SODIUM CHLORIDE IV SCH ×3 (09:00→20:52)
[2020-02-09] MEDS: Metoprolol Tartrate 25 MG TAB PO SCH ×2 (09:03→20:31)
[2020-02-09] MEDS: Losartan 25 MG TAB PO SCH (09:03)
[2020-02-09] MEDS: hydrOXYzine 10 MG TAB PO SCH ×2 (09:03→20:31)
[2020-02-09] MEDS: Famotidine 20 MG TAB PO SCH ×2 (09:03→20:30)
[2020-02-09] MEDS: Sulfameth/Trimethoprim DS 800-160mg TAB PO SCH ×2 (09:03→20:31)
[2020-02-09] MEDS: Senokot S 8.6-50 MG TAB PO SCH ×2 (09:04→20:30)
[2020-02-09] MEDS: Polyethylene Glycol 3350 17 GM Packet PO SCH (09:04)
[2020-02-09] MEDS ORDERED: Dexamethasone 20 MG/5 ML VIAL ONE (09:50)
[2020-02-09] MEDS ORDERED: Ondansetron PF 4 MG/2 ML Vial ONE (09:50)
[2020-02-09] MEDS ORDERED: Glycopyrrolate 0.2 MG/ML 5 ML SYRINGE ONE (09:50)
[2020-02-09] MEDS ORDERED: Rocuronium Bromide 10 MG/ML (10ML VIAL) ONE (09:50)
[2020-02-09] MEDS ORDERED: PROPOFOL 200 MG/20 ML VIAL ONE (09:50)
[2020-02-09] MEDS ORDERED: PHENYLEPHRINE-NS 100 MCG/ML 10 ML SYRINGE ONE (09:50)
[2020-02-09] MEDS ORDERED: Lidocaine 1% PF 5 ML VIAL ONE (09:50)
[2020-02-09] MEDS ORDERED: ePHEDrine 50 MG/ML VIAL ONE (09:50)
[2020-02-09] MEDS: Sodium Chloride 1 GM TAB PO SCH ×2 (09:59→20:31)
[2020-02-09 10:33] LABS: Anion Gap 11 mmol/L (10-20); BUN (Urea Nitrogen) 7 mg/dL (9.8-20.1); Calc. Creatinine Clearance 65 mL/min (70-130); Calcium 8.2 mg/dL (7.8-10.44); Carbon Dioxide 24 mmol/L (23-31); Chloride 89 mmol/L (98-107); Glucose 100 mg/dL (83-110); Potassium 3.7 mmol/L (3.5-5.1); Sodium 120 mmol/L (136-145)
[2020-02-09] MEDS ORDERED: Fentanyl 100 MCG/2 ML VIAL ONE (11:24)
[2020-02-09 11:33] LABS: SARS-CoV-2 MS2 Positive; SARS-CoV-2 N Gene Negative; SARS-CoV-2 S Gene Negative; SARS-CoV-2 by NAA Not Detected (NotDetected); SARS-CoV-2 orf1ab Negative
[2020-02-09] MEDS ORDERED: SUGAMMADEX SODIUM 200 MG/2 ML VIAL ONE (14:22)
[2020-02-09] MEDS ORDERED: Promethazine HCl 25 MG/ML VIAL SLOW IVP PRN (14:27)
[2020-02-09] MEDS ORDERED: Ondansetron HCl/PF 4 MG/2 ML Vial IVP PRN (14:27)
[2020-02-09] MEDS ORDERED: Promethazine HCl 25 MG/ML VIAL IM PRN (14:27)
--- NOTE | 2020-02-09 15:04 | RAD ---
XR Hip Rt 2-3 View History: Postop evaluation Comparison: Radiograph same day Findings: Satisfactory appearance right hip arthroplasty. Expected postoperative gas and edema. Impression: Satisfactory appearance right hip arthroplasty.
--- NOTE | 2020-02-09 15:04 | RAD ---
Exam: One view pelvis HISTORY: Postoperative exam. Right hip arthroplasty for right hip fracture. FINDINGS: Expected postoperative changes in the right hip. Intact bony pelvis. Based on single image, alignment is near-anatomic. IMPRESSION: Findings compatible with right hip arthroplasty
--- NOTE | 2020-02-09 15:27 | PRG ---
DATE OF SERVICE: 02/09/2020 SUBJECTIVE: The patient is a 79-year-old female who was admitted for right femoral neck fracture post mechanical fall from standing, day #1. The patient is scheduled to undergo repair of the right hip later this morning. She is resting comfortably in bed during morning rounds. She denies any pain. She reports difficulty urinating with a PureWick, but denies dysuria, pyuria, or suprapubic pain. PHYSICAL EXAMINATION: VITAL SIGNS: Temperature is 97.9 degrees Fahrenheit, blood pressure is 127/71, heart rate is 68, respiratory rate is 16, oxygen saturation is 93% on room air. GENERAL: Well appearing elderly female, awake, alert, in no acute distress, sitting up in bed. is at bedside. HEENT: Head is atraumatic, normocephalic. Pupils are equal and round, reactive to light. RESPIRATORY: Lungs are clear to auscultation bilaterally. CARDIAC: Regular rate and rhythm. No murmurs. ABDOMEN: Soft, nontender, nondistended. EXTREMITIES: Moves all extremities. Neurovascularly intact x4. Right lower extremity is mildly shortened. NEUROLOGIC: No focal deficits noted. GCS is 15. LABORATORY DATA: CBC is noteworthy for white blood cell count of 13.3, hemoglobin of 11.7, hematocrit 34.0, platelet count of 190. Chemistry is notable for sodium of 119, previously 123 on admission; potassium 3.8; creatinine 0.79; calcium 8.1; phosphorus 3; magnesium 2. RADIOGRAPHIC DATA: None to review this a.m. ASSESSMENT: 1. Status post mechanical fall from standing. 2. Right femoral neck fracture, scheduled for repair today. 3. Acute traumatic pain secondary to above. 4. Hyponatremia, chronic. 5. Cardiomegaly. 6. History of hypertension. 7. Cerebrovascular accident. PLAN: Continue with current pain regimen. We will repeat BMP after the patient receives sodium chloride 1.8%. The patient will go to the OR today for repair of right hip fracture. We will further monitor sodium level with a.m. BMP. The patient was initially treated for UTI upon presentation. Urine cultures resulted negative, therefore, we will no longer continue to treat. The patient will likely require acute inpatient rehabilitation. Case Management screening as been placed. The patient was seen and examined by Dr. Hughes during morning rounds. The plan of care was discussed with the patient and her , who were in agreement. Job ID: [id number] MTDD
--- NOTE | 2020-02-09 16:14 | RAD ---
Exam: Chest one view HISTORY:Low oxygen Comparison: 02/08/2020 FINDINGS: Cardiac silhouette:Enlarged Aorta: Elongated Pulmonary vessels: Normal Costophrenic angles: Small left-sided pleural effusion LUNGS: Scattered interstitial opacities with more focal infiltrate in the left and right lower lobe. Lung volumes are diminished. Component of atelectasis in the lung bases cannot be excluded. Pneumothorax: None Osseous abnormalities: None IMPRESSION: 1. Cardiomegaly. 2. Patchy interstitial opacities lung bases. Correlate for edema or infiltrate. Diminished lung volum es. Atelectasis in the lung bases cannot be excluded.
[2020-02-09] MEDS: CEFAZOLIN 2 GM in Premix Bag 1 BAG IVPB SCH (18:20)
[2020-02-09 20:34] LABS: Anion Gap 15 mmol/L (10-20); BUN (Urea Nitrogen) 9 mg/dL (9.8-20.1); Calc. Creatinine Clearance 60 mL/min (70-130); Calcium 7.4 mg/dL (7.8-10.44); Carbon Dioxide 19 mmol/L (23-31); Chloride 92 mmol/L (98-107); Glucose 171 mg/dL (83-110); Potassium 3.5 mmol/L (3.5-5.1); Sodium 122 mmol/L (136-145)
[2020-02-09] MEDS ORDERED: Furosemide 20 MG/2 ML VIAL SLOW IVP SCH (21:15)
[2020-02-10] MEDS: CEFAZOLIN 2 GM in Premix Bag 1 BAG IVPB SCH ×2 (02:28→11:12)
[2020-02-10] MEDS: traMADol HCl 50 MG TAB PO SCH ×4 (02:28→20:11)
[2020-02-10 05:23] LABS: #Lymphocytes 0.4 thou/uL (1.20-3.40); #Monocytes 0.5 thou/uL (0.11-0.59); #Neutrophils 9.1 thou/uL (1.40-6.50); %Basophils 0.1 % (0.0-1.0); %Eosinophils 0.2 % (0.0-10.0); %Lymphocytes 3.9 % (21.0-51.0); %Monocytes 4.5 % (0.0-10.0); %Neutrophils 91.4 % (42.0-75.0); Hemoglobin 8.9 g/dL (12.0-16.0); Mean Corpuscular HGB CONC 34.3 g/dL (32.0-36.0); Mean Corpuscular Hemoglobin 32.1 pg (27.0-31.0); Mean Corpuscular Volume 93.7 fL (78.0-98.0); Mean Platelet Volume 7.4 fL (7.4-10.4); Platelet Count 161 thou/uL (130-400); RBC Distribution Width 11.8 % (11.5-14.5); Red Blood Cell (RBC) Count 2.77 mill/uL (4.20-5.40)
[2020-02-10] MEDS: hydrALAZINE 25 MG TAB PO SCH ×4 (05:34→23:20)
[2020-02-10] MEDS: Acetaminophen 500 MG TAB PO SCH ×4 (05:34→23:18)
[2020-02-10 05:48] LABS: Anion Gap 11 mmol/L (10-20); BUN (Urea Nitrogen) 12 mg/dL (9.8-20.1); Calc. Creatinine Clearance 58 mL/min (70-130); Calcium 7.4 mg/dL (7.8-10.44); Carbon Dioxide 22 mmol/L (23-31); Chloride 94 mmol/L (98-107); Glucose 137 mg/dL (83-110); Magnesium 2.1 mg/dL (1.6-2.6); Phosphorus 1.7 mg/dL (2.3-4.7); Potassium 3.8 mmol/L (3.5-5.1); Sodium 123 mmol/L (136-145)
[2020-02-10] MEDS ORDERED: Sodium Phosphate 30 MMOL in Sodium Chloride 0.9% 250 ML 250 ML IVPB SCH (07:45)
[2020-02-10] MEDS: Senokot S 8.6-50 MG TAB PO SCH ×2 (08:54→20:14)
[2020-02-10] MEDS: Losartan 25 MG TAB PO SCH (08:55)
[2020-02-10] MEDS: Metoprolol Tartrate 25 MG TAB PO SCH ×2 (08:55→20:14)
[2020-02-10] MEDS: Famotidine 20 MG TAB PO SCH ×2 (08:55→20:14)
[2020-02-10] MEDS: Sodium Chloride 1 GM TAB PO SCH ×3 (08:56→20:42)
[2020-02-10] MEDS: hydrOXYzine 10 MG TAB PO SCH ×2 (08:56→20:28)
[2020-02-10] MEDS: Polyethylene Glycol 3350 17 GM Packet PO SCH (08:56)
[2020-02-10] MEDS ORDERED: Furosemide 20 MG TAB PO SCH (11:45)
--- NOTE | 2020-02-10 13:48 | PRG ---
DATE OF SERVICE: 02/10/2020 The patient was discussed with Dr. Adrian Hughes. SUBJECTIVE: Ms. Hess is a 79-year-old female who is hospital day #2, postop day #1, status post ORIF of the right femoral neck fracture, acute hyponatremia. She was given one dose of Lasix overnight. She has required 4 L of oxygen nasal cannula and becomes quite winded whenever she moves. She came from home, has not had any history of lung problems, nonsmoker, and never required oxygen in the past. She states her pain is generally controlled. She is able to get around 700 on IS total, not able to get over this. On my evaluation, the patient is winded with slight respiratory distress. She was just gotten up with PT. She has no chest pain. No other complaints. She remains afebrile. Chest x-ray was reviewed from yesterday. Shows slight interstitial markings, possible atelectasis. The patient was seen with her at the bedside. OBJECTIVE: VITAL SIGNS: Temperature is 97.6, blood pressure is 120/73, heart rate is 78, breathing 16 times per minute, 96% on 3 L oxygen nasal cannula. Total urine output yesterday was 1300 mL. As of today, she is not positive for 140 mL. GENERAL: A 79-year-old female, sitting up with slight respiratory distress. HEENT: Normocephalic, atraumatic. Trachea is midline. No JVD was appreciated. RESPIRATORY: She has some tachypnea and accessory muscle usage with respiratory distress. She has clear lung sounds bilaterally with no rubs or wheezes. CARDIOVASCULAR: Regular rate and rhythm. ABDOMEN: Soft and nontender. Pelvis is stable. MUSCULOSKELETAL: She has a dry dressing in place to the right hip. She is able to feel all of her lower extremities and upper extremities. NEUROLOGIC: GCS is 15. Moves extremities well. PSYCH: Normal mood and affect. SKIN: Warm and dry. LABORATORY DATA: White blood cell count is 10.0, platelets are 161, hemoglobin and hematocrit are 8.9 and 26.0 respectively. Sodium is 123, potassium is 3.8, chloride is 94, CO2 is 22, creatinine 0.98, glucose 137, magnesium is 2.1, and phos of 1.7. ASSESSMENT: 1. Right femoral neck fracture, status post open reduction and internal fixation, postop day #1. 2. Mechanical fall from standing. 3. Acute traumatic pain. 4. Hyponatremia, on 1.8% saline. 5. Cardiomegaly. 6. Hypoxic respiratory failure, postprocedure versus atelectasis. 7. History of hypertension and cerebrovascular accident. PLAN: 1. I reviewed chest x-ray. 2. I have encouraged IS and coached through this. 3. Encouraged coughing. 4. Reduced oxygen to 3 L/minute, maintain SpO2 well. 5. Encouraged to work with PT and OT. 6. Additional 40 of Lasix p.o. now. Monitor output. 7. Stop IV fluids. 8. Stop 3% saline. 9. Continue salt tabs. 10. Has been accepted in [facility]. If oxygen level continues to improve, we will hopefully discharge in the morning. 11. We will repeat labs tomorrow morning. 12. Replace electrolytes as needed. 13. Continue all other supportive care. 14. I have updated the patient and the patient's family at the bedside and coordinated with the bedside RN as well as Case Management. We will start DVT prophylaxis today with Lovenox. Job ID: [id number]
[2020-02-10] MEDS: Enoxaparin Sodium 40 MG/0.4 ML SYRINGE SC SCH (20:13)
[2020-02-11] MEDS: traMADol HCl 50 MG TAB PO SCH ×4 (03:52→21:22)
[2020-02-11] MEDS: Acetaminophen 500 MG TAB PO SCH ×3 (05:35→17:52)
[2020-02-11] MEDS: hydrALAZINE 25 MG TAB PO SCH ×3 (05:37→17:52)
[2020-02-11 06:25] LABS: #Eosinphils 0.5 thou/uL (0.0-0.7); #Lymphocytes 1.2 thou/uL (1.20-3.40); #Neutrophils 8.5 thou/uL (1.40-6.50); %Basophils 0.4 % (0.0-1.0); %Eosinophils 4.2 % (0.0-10.0); %Monocytes 8.8 % (0.0-10.0); %Neutrophils 75.5 % (42.0-75.0); Hemoglobin 8.9 g/dL (12.0-16.0); Mean Corpuscular HGB CONC 34.5 g/dL (32.0-36.0); Mean Corpuscular Hemoglobin 32.7 pg (27.0-31.0); Mean Corpuscular Volume 94.8 fL (78.0-98.0); Mean Platelet Volume 7.8 fL (7.4-10.4); Platelet Count 198 thou/uL (130-400); Red Blood Cell (RBC) Count 2.71 mill/uL (4.20-5.40); White Blood Cell (WBC) Count 11.2 thou/uL (4.8-10.8)
[2020-02-11 06:52] LABS: Anion Gap 13 mmol/L (10-20); BUN (Urea Nitrogen) 12 mg/dL (9.8-20.1); Calc. Creatinine Clearance 51 mL/min (70-130); Calcium 7.8 mg/dL (7.8-10.44); Carbon Dioxide 23 mmol/L (23-31); Chloride 93 mmol/L (98-107); Glucose 100 mg/dL (83-110); Magnesium 2.2 mg/dL (1.6-2.6); Phosphorus 2.6 mg/dL (2.3-4.7); Potassium 3.4 mmol/L (3.5-5.1); Sodium 126 mmol/L (136-145)
[2020-02-11] MEDS: hydrOXYzine 10 MG TAB PO SCH ×2 (08:56→21:24)
[2020-02-11] MEDS: Polyethylene Glycol 3350 17 GM Packet PO SCH (08:56)
[2020-02-11] MEDS: Metoprolol Tartrate 25 MG TAB PO SCH ×2 (08:56→21:24)
[2020-02-11] MEDS: Losartan 25 MG TAB PO SCH (08:56)
[2020-02-11] MEDS: Sodium Chloride 1 GM TAB PO SCH ×2 (08:56→21:22)
[2020-02-11] MEDS: Famotidine 20 MG TAB PO SCH ×2 (08:56→21:26)
[2020-02-11] MEDS: Senokot S 8.6-50 MG TAB PO SCH ×2 (08:56→21:25)
[2020-02-11] MEDS ORDERED: Potassium Chloride 20 MEQ TAB PO SCH (09:00)
--- NOTE | 2020-02-11 09:47 | OP ---
DATE OF PROCEDURE: 02/09/2020 PREOPERATIVE DIAGNOSIS: Right femoral neck fracture, displaced. POSTOPERATIVE DIAGNOSIS: Right femoral neck fracture, displaced. PROCEDURE PERFORMED: Right hip hemiarthroplasty. ANESTHESIA: General. INSOLE AND OUTSOLE PREPARER: Stanley Galvan PA-C IMPLANTS: The [place] system was used with a size 3 [place] stem, a 28 x 47 bipolar cup and a +5 femoral head with the addition of a 1.7 mm cable for a small nonpropagating fracture line at the calcar. COMPLICATIONS: None. DRAINS: None. SPECIMEN: None. OUTCOME: Satisfactory. INDICATIONS FOR PROCEDURE: The patient is a 79-year-old lady, status post ground level fall sustaining a displaced right femoral neck fracture. After discussion with the patient including risks and benefits, we decided to proceed with right hip hemiarthroplasty. Informed consent has been obtained, I believe all questions answered. DESCRIPTION OF PROCEDURE: The patient was brought to the operating room and a time-out performed followed by induction of general anesthesia. The patient was positioned in the left lateral decubitus position and sterile prep and drape was performed in the right lower extremity. A curvilinear incision was made centered over the greater trochanter. After skin was sharply incised, dissection was carried down bluntly through the subcutaneous fat to the level of the tensor fascia and fascia anson. This structure was incised in-line with skin incision reflected anteriorly and posteriorly. The short external rotators were swept clean of the trochanteric bursa. The piriformis was identified and coming just distal to the piriformis, an elevator was used to separate the superior gemelli from the piriformis. An elevator was then passed under the piriformis, protecting it in the abductors and exposing the joint capsule. The superior and inferior gemelli eye were sharply debrided and removed off the posterior aspect of the femur and reflected posteriorly to protect the sciatic nerve. At this time, a T-capsulotomy was performed to the capsule. The femoral head was then removed with a T-handle corkscrew device. Measurement on the back table was used to determine appropriate size for the bipolar cup. An oscillating saw was used to make a femoral neck cut a little less than a centimeter above the lesser trochanter, this secondary to comminution in this area. Once the cut was made, excess bone was removed with a rongeur. Next, an opening T-handle awl was passed down the canal, followed by lateralizing reamer and then serial T-handle awl was passed up to a size four. Broaching was started at size 3 and with size 3, there was already full coverage of the calcar region and with placement of this broach. There was found to be a nondisplaced fracture line that was at the calcar. As such, while the broach was in place, a cable was passed around the proximal femur to further stabilize this. A trial reduction was performed. She was found to have excellent stability with a size 3 stem and good leg length preservation with a +5 head. The trial was then removed and then, a Pulsavac was used to irrigate the acetabulum as well as femoral canal. A size 3 stem was passed down the femur followed by insertion of the appropriate size bipolar head. The hip was reduced and found to be very stable with her preservation of the piriformis. Wound closure was performed with #1 Vicryl for the tensor fascia, fascia anson complex followed by 0 Vicryl for Yvon's fascia, then 2-0 Vicryl and tomeka for the skin closure. Xeroform gauze and tape dressing was then applied and the patient was transferred to recovery room in stable condition. There was no complications and the patient tolerated the procedure well. Job ID: [id number]
--- NOTE | 2020-02-11 13:53 | PRG ---
DATE OF SERVICE: 02/11/2020 SUBJECTIVE: Ms. Hess is a 79-year-old female, hospital day #3 status post ORIF of the right femoral neck fracture. She was requiring oxygen yesterday. We have able to wean this down today in the room. She is actually 95% off oxygen. She is only getting about 752, maybe close to 1000 on her IS, having her cough. She does feel somewhat improved. She has diuresed well with one additional dose of Lasix. She is sitting up in bed, tolerating a diet. She walked 30 feet with PT and actually recovered quite nicely today. However, she does report increased weakness compared to her baseline. She is walking nearly 2 miles prior to her fall. OBJECTIVE: VITAL SIGNS: Blood pressure 119/70, heart rate is 91, breathing 16 times per minute, 96% on room air, temperature is 98.1. GENERAL: A 79-year-old female, sitting up in no acute distress, having breakfast. HEENT: Normocephalic, atraumatic. NECK: Trachea is midline. RESPIRATORY: Equal rise and fall. CARDIOVASCULAR: Regular rate and rhythm. Strong pulses. ABDOMEN: Soft. PELVIS: Stable. EXTREMITIES: Right hip with dry dressing. Has sensation in her extremities. Has been ambulatory today. NEUROLOGIC: Alert and oriented to person, place, time, and event. GCS 15. PSYCH: Normal mood and affect. LABORATORY DATA: Today, a white blood cell count 11.2, platelets are 198, hemoglobin and hematocrit 8.9 and 25.7 respectively. Sodium is 126, potassium 3.4, chloride is 93, CO2 is 23, creatinine is 1.12, calcium 7.8, phos is 2.6, mag of 2.2. ASSESSMENT: 1. Fall with right femoral neck fracture, status post open reduction internal fixation postop day #2. 2. Acute traumatic pain. 3. Hyponatremia, improving. 4. Cardiomegaly. 5. Hypoxic respiratory failure, resolved. 6. History of hypertension and cerebrovascular accident. PLAN: 1. Continue to encourage IS and coughing. 2. Continue to encourage p.o. fluids. 3. Off IV fluids. 4. We can continue the salt tabs for now. 5. Replace electrolytes as needed. 6. Continue PT, OT, and pain control as needed. 7. Continue all other supportive care. 8. Continue Lovenox for DVT prophylaxis. 9. Discussed the case again with Case Management. The patient is ready for discharge from our standpoint. She is tolerating well. Passing urine. Ambulatory now off oxygen. We will need to watch her creatinine, make sure she is getting good p.o. intake. She remains in the hospital, however, feel like she remains stable, can follow up outpatient as well. I believe that [facility]. Again, I texted around 8 this morning, then talked on the phone approximately 10 minutes ago with Case Management, they can let me know if she is able to discharge. 10. I have coordinated with bedside RN. 11. I have updated the patient and the patient's at the bedside and answered all questions. Job ID: [id number]
[2020-02-11] MEDS: Enoxaparin Sodium 40 MG/0.4 ML SYRINGE SC SCH (21:25)
[2020-02-12] MEDS: hydrALAZINE 25 MG TAB PO SCH ×3 (00:36→11:06)
[2020-02-12] MEDS: Acetaminophen 500 MG TAB PO SCH ×4 (00:36→11:31)
[2020-02-12] MEDS: traMADol HCl 50 MG TAB PO SCH ×3 (03:55→14:44)
[2020-02-12 06:20] LABS: Anion Gap 11 mmol/L (10-20); BUN (Urea Nitrogen) 11 mg/dL (9.8-20.1); Calc. Creatinine Clearance 58 mL/min (70-130); Calcium 8.2 mg/dL (7.8-10.44); Carbon Dioxide 24 mmol/L (23-31); Chloride 99 mmol/L (98-107); Glucose 88 mg/dL (83-110); Magnesium 2.2 mg/dL (1.6-2.6); Potassium 4.1 mmol/L (3.5-5.1); Sodium 130 mmol/L (136-145)
[2020-02-12] MEDS: hydrOXYzine 10 MG TAB PO SCH (08:25)
[2020-02-12] MEDS: Senokot S 8.6-50 MG TAB PO SCH (08:25)
[2020-02-12] MEDS: Famotidine 20 MG TAB PO SCH (08:25)
[2020-02-12] MEDS: Polyethylene Glycol 3350 17 GM Packet PO SCH (08:25)
[2020-02-12] MEDS: Losartan 25 MG TAB PO SCH (08:26)
[2020-02-12] MEDS: Metoprolol Tartrate 25 MG TAB PO SCH (08:26)
[2020-02-12] MEDS: Sodium Chloride 1 GM TAB PO SCH (08:26)
[2020-02-12] MEDS ORDERED: PHOS-NAK 1 PKT PACK PO SCH (09:45)
[2020-02-12 11:49] VITALS: BP 132/84; TEMP 97.8
--- NOTE | 2020-02-13 02:16 | DIS ---
DATE OF ADMISSION: 02/08/2020 DATE OF DISCHARGE: 02/12/2020 DISCHARGING PHYSICIAN: Klever Sutherland MD CONSULTING PHYSICIAN: Houston Butler MD ADMITTING DIAGNOSIS: Right femoral neck fracture. DISCHARGE DIAGNOSES: 1. Right femoral neck fracture. 2. Atelectasis. 3. Mild postprocedure respiratory failure. 4. Hyponatremia. 5. History of hypertension and cerebrovascular accident. PROCEDURES: During admission, she had an operative repair of her right femoral neck fracture with right hip hemiarthroplasty by Dr. Butler on 02/09/2020. HOSPITAL COURSE: Ms. Hess was admitted to the emergency department trauma service. She has undergone surgery on hospital day #1, tolerated the procedure well. She was accepted at [facility]. She did have some postprocedure respiratory failure requiring oxygen 4 L/minute overnight. On postop day #0 and #1, we were able to wean this down with aggressive IS, ambulation, and coughing. The patient now is able to walk with PT. She is down to room air, which is her baseline and no acute distress as easy. She is little weak. Her pain is totally controlled. She has had a bowel movement. Tolerated the diet and feels ready to go to [facility]. She did have some hyponatremia. She was placed on 1.8% saline and fluid restriction. This was eventually improved throughout her hospital course. DISCHARGE MEDICATIONS ARE: 1. Tylenol 1 g scheduled. 2. Flexeril as needed. 3. Lovenox 40 nightly. 4. Pepcid 20 mg b.i.d. 5. Ibuprofen 400 mg every 8. 6. Losartan 50 mg daily. 7. Metoprolol 25 mg b.i.d. 8. Zofran 4 mg as needed. 9. Tramadol 50 mg every 6 hours. PHYSICAL EXAMINATION: VITAL SIGNS: On the day of discharge, temperature is 97.8, blood pressure is 102/84, heart rate is 78, respiratory rate is 18, sat 93% on room air. GENERAL: 79-year-old female sitting up in a chair. No acute distress. Nontoxic appearing. HEENT: Normocephalic, atraumatic. Trachea is midline. RESPIRATORY: Equal rise and fall. Bilateral breath sounds. Clear to auscultation bilaterally. CARDIOVASCULAR: Regular rate and rhythm. ABDOMEN: Soft and nontender. Pelvis is stable. MUSCULOSKELETAL: She has surgical scar to the right hip. However, she is ambulatory. She has sensation in all extremities. NEUROLOGIC: Alert and oriented to person, place, time, and event. GCS is 15. PSYCH: Normal mood and affect. LABORATORY DATA: On discharge shows sodium 130, potassium 4.1, chloride is 99, CO2 is 24, creatinine 0.98, glucose is 88. DISCHARGE PLAN: To [facility]. FOLLOW UP: 1. With Dr. Butler in 2 weeks. 2. Follow up with PCP as needed. Answered all questions of the patient and patient's at bedside, given return precautions. Coordinated with bedside RN. Greater than 30 minutes taken in discharge planning of this patient. Job ID: [id number]
== END 2020-02-12 15:34 | disposition swing bed (61) | DRG 521 ==
LOC: ERS 09:59 → EEVIPCON 09:59 → SURG A 11:21
PROVIDERS: ADMIT Surgery; ATTEND Surgery
PROC: 0SRR0JZ Replacement of Right Hip Joint, Femoral Surface with Synthetic Substitute, Open Approach (ICD-10-PCS; principal; 2020-02-09)
DX: S72.03 Midcervical fracture of femur (principal); J95.821 Acute postprocedural respiratory failure; E87.1 Hypo-osmolality and hyponatremia; N39.0 Urinary tract infection, site not specified; I69.351 Hemiplegia and hemiparesis following cerebral infarction affecting right dominant side; I10 Essential (primary) hypertension; I51.7 Cardiomegaly; Z20.828 Contact with and (suspected) exposure to other viral communicable diseases; W01.0XXA Fall on same level from slipping, tripping and stumbling without subsequent striking against object, initial encounter; Z79.899 Other long term (current) drug therapy; Z79.02 Long term (current) use of antithrombotics/antiplatelets
CPT/HCPCS: 36415; 51701; 71045; 72170; 80048; 80053; 81003; 81015; 83735; 84100; 84484; 85025; 85610; 85730; 87086; 87635; 93005; 94640; 96374; 96375; C1776; J0690; J1100; J1650; J1940; J2270; J2405; J2704; J3010; J3475; J3480; J3490; J7050; J7620; U0003

== ENCOUNTER 2021-12-19 09:11 | Day surgery (SDC) | payer MEDICARE ==
[2021-12-17 11:53] VITALS: BMI 25.0
[2021-12-19] MEDS ORDERED: Ketorolac Tromethamine 30 MG/ML VIAL ONE (12:17)
[2021-12-19] MEDS ORDERED: Acetaminophen 500 MG TAB ONE ×2 (12:17)
[2021-12-19] MEDS ORDERED: EPINEPHrine 1 MG/ML AMP ONE (12:38)
[2021-12-19] MEDS ORDERED: Bupivacaine 0.25% HCL 30 ML VIAL ONE (12:38)
[2021-12-19] MEDS ORDERED: fentaNYL Citrate/PF 100 MCG/2 ML SYRINGE ONE (13:53)
[2021-12-19] MEDS ORDERED: CEFAZOLIN 2 GM VIAL ONE (13:57)
[2021-12-19] MEDS ORDERED: PROPOFOL 200 MG/20 ML VIAL ONE (14:10)
[2021-12-19] MEDS ORDERED: Dexamethasone 20 MG/5 ML VIAL ONE (14:10)
[2021-12-19] MEDS ORDERED: Ondansetron PF 4 MG/2 ML Vial ONE (14:10)
[2021-12-19] MEDS ORDERED: ePHEDrine 50 MG/ML VIAL ONE ×2 (14:10)
[2021-12-19] MEDS ORDERED: Rocuronium Bromide 10 MG/ML (10ML VIAL) ONE (14:10)
[2021-12-19] MEDS ORDERED: SUGAMMADEX SODIUM 200 MG/2 ML VIAL ONE (15:12)
[2021-12-19] MEDS ORDERED: Fentanyl 100 MCG/2 ML VIAL ONE (15:47)
[2021-12-19] MEDS ORDERED: HYDROcodone/Acetaminophen 5/325 mg Tablet ONE (16:49)
== END 2021-12-19 17:28 | disposition home or self-care (01) ==
LOC: SDC 09:11
PROVIDERS: ATTEND Specialist
PROC: 0YU54JZ Supplement Right Inguinal Region with Synthetic Substitute, Percutaneous Endoscopic Approach (ICD-10-PCS; principal; 2021-12-19)
PROC: 8E0W4CZ Robotic Assisted Procedure of Trunk Region, Percutaneous Endoscopic Approach (ICD-10-PCS; 2021-12-19)
DX: K40.90 Unilateral inguinal hernia, without obstruction or gangrene, not specified as recurrent (principal); E78.00 Pure hypercholesterolemia, unspecified; I10 Essential (primary) hypertension; Z79.02 Long term (current) use of antithrombotics/antiplatelets; Z79.82 Long term (current) use of aspirin; Z79.899 Other long term (current) drug therapy; Z91.018 Allergy to other foods
CPT/HCPCS: 49650; C1781; J0171; J0690; J1100; J1885; J2405; J2704; J3010; J3490; S0020

== ENCOUNTER 2023-04-25 20:19 | Inpatient (IN) | payer MEDICARE ==
[2023-04-25 20:51] LABS: #Eosinphils 0.4 thou/uL (0.0-0.7); #Monocytes 0.8 thou/uL (0.11-0.59); #Neutrophils 2.4 thou/uL (1.40-6.50); %Basophils 0.8 % (0.0-1.0); %Eosinophils 9.1 % (0.0-10.0); %Lymphocytes 22.1 % (21.0-51.0); %Monocytes 17.1 % (0.0-10.0); %Neutrophils 50.5 % (42.0-75.0); Hematocrit 31.4 % (36.0-47.0); Hemoglobin 10.8 g/dL (12.0-16.0); Mean Corpuscular HGB CONC 34.4 g/dL (32.0-36.0); Mean Corpuscular Hemoglobin 31.4 pg (27.0-31.0); Mean Corpuscular Volume 91.3 fl (78.0-98.0); Mean Platelet Volume 9.8 fL (7.4-10.4); Platelet Count 233 10x3/uL (130-400); RBC Distribution Width 13.4 % (11.5-14.5); Red Blood Cell (RBC) Count 3.44 mill/uL (4.20-5.40); White Blood Cell (WBC) Count 4.8 10x3/uL (4.8-10.8)
[2023-04-25 21:14] LABS: ALT (SGPT) 11 U/L (8-55); AST (SGOT) 19 U/L (5-34); Albumin 2.2 g/dL (3.4-4.8); Alkaline Phosphatase 49 U/L (40-110); Anion Gap 12 mmol/L (10-20); BUN (Urea Nitrogen) 47 mg/dL (9.8-20.1); Bilirubin, Total 0.2 mg/dL (0.2-1.2); Calc. Creatinine Clearance 0 mL/min (70-130); Calcium 8.2 mg/dL (7.8-10.44); Carbon Dioxide 25 mmol/L (23-31); Chloride 99 mmol/L (98-107); Estimated GFR 22; Glucose 117 mg/dL (83-110); Potassium 3.8 mmol/L (3.5-5.1); Protein, Total 4.2 g/dL (5.8-8.1); Sodium 132 mmol/L (136-145)
[2023-04-25 21:18] LABS: Troponin I 0.025 ng/mL (< 0.028)
[2023-04-25] MEDS ORDERED: Furosemide 40 MG (4 mL) VIAL ONE (21:44)
[2023-04-25] MEDS ORDERED: Aspirin Chewable 81 MG TAB ONE (21:44)
[2023-04-25] MEDS ORDERED: Nitroglycerin 0.4 MG TAB (25 Tab Bottle) ONE (21:46)
[2023-04-25] MEDS ORDERED: Acetaminophen 650 MG Suppository PR PRN (23:17)
[2023-04-25] MEDS ORDERED: Ondansetron PF 4 MG/2 ML Vial IVP PRN (23:17)
[2023-04-25] MEDS ORDERED: Ondansetron ODT 4 MG TAB PO PRN (23:17)
[2023-04-26] MEDS ORDERED: Electrolyte Replacement Protocol 1 EACH FS SCH (00:30)
[2023-04-26] MEDS ORDERED: hydrALAZINE 20 MG/ML VIAL ONE ×2 (00:36→12:40)
[2023-04-26] MEDS: hydrALAZINE 20 MG/ML VIAL SLOW IVP PRN (00:40)
[2023-04-26 02:13] LABS: Troponin I 0.022 ng/mL (< 0.028)
[2023-04-26 03:39] LABS: #Eosinphils 0.4 thou/uL (0.0-0.7); #Monocytes 0.8 thou/uL (0.11-0.59); #Neutrophils 2.1 thou/uL (1.40-6.50); %Basophils 0.6 % (0.0-1.0); %Eosinophils 9.5 % (0.0-10.0); %Lymphocytes 27.6 % (21.0-51.0); %Monocytes 17.5 % (0.0-10.0); %Neutrophils 44.6 % (42.0-75.0); Hemoglobin 10.4 g/dL (12.0-16.0); Mean Corpuscular HGB CONC 34.7 g/dL (32.0-36.0); Mean Corpuscular Hemoglobin 32.2 pg (27.0-31.0); Mean Corpuscular Volume 92.9 fl (78.0-98.0); Mean Platelet Volume 9.9 fL (7.4-10.4); Platelet Count 218 10x3/uL (130-400); RBC Distribution Width 13.4 % (11.5-14.5); Red Blood Cell (RBC) Count 3.23 mill/uL (4.20-5.40); White Blood Cell (WBC) Count 4.6 10x3/uL (4.8-10.8)
[2023-04-26 04:03] LABS: Anion Gap 12 mmol/L (10-20); BUN (Urea Nitrogen) 44 mg/dL (9.8-20.1); Calc. Creatinine Clearance 24 mL/min (70-130); Calcium 8.6 mg/dL (7.8-10.44); Carbon Dioxide 22 mmol/L (23-31); Chloride 100 mmol/L (98-107); Estimated GFR 22; Glucose 87 mg/dL (83-110); Iron 65 ug/dL (50-170); Iron Binding Capacity, Total 178 mcg/dL (265-497); Magnesium 1.9 mg/dL (1.6-2.6); Potassium 3.2 mmol/L (3.5-5.1); Sodium 131 mmol/L (136-145)
[2023-04-26 04:07] LABS: Troponin I 0.012 ng/mL (< 0.028)
[2023-04-26 04:10] LABS: Iron Binding Capacity, Total 173 mcg/dL (265-497)
[2023-04-26 04:20] LABS: Ferritin 389.49 ng/mL (10-291)
[2023-04-26 04:29] LABS: Iron 64 ug/dL (50-170)
[2023-04-26 04:45] LABS: Thyroid Stimulating Hormone 3.8812 uIU/mL (0.35-4.94)
[2023-04-26] MEDS ORDERED: Acetaminophen 325 MG TAB ONE ×2 (07:14→14:42)
[2023-04-26] MEDS: Acetaminophen 325 MG TAB PO PRN (07:20)
[2023-04-26] MEDS ORDERED: Potassium Chloride 20 MEQ TAB ONE (08:34)
[2023-04-26] MEDS ORDERED: Furosemide 40 MG (4 mL) VIAL ONE (08:35)
[2023-04-26] MEDS ORDERED: Heparin 5,000 UNITS/ML VIAL ONE (08:35)
[2023-04-26] MEDS ORDERED: Magnesium 2 GM/50 ML BAG (IN WATER) ONE (08:35)
[2023-04-26] MEDS: Magnesium 2 GM/50 ML(in water) 2 GM in Premix 1 BAG IVPB SCH (09:14)
[2023-04-26] MEDS: Furosemide 40 MG (4 mL) VIAL SLOW IVP SCH (09:16)
[2023-04-26] MEDS: Heparin 5,000 UNITS/ML VIAL SC SCH (09:16)
[2023-04-26] MEDS: Potassium Chloride 20 MEQ TAB PO SCH (09:16)
[2023-04-26] MEDS ORDERED: Albuterol 200 PUFF (6.7GM INHALER) INH PRN (10:38)
[2023-04-26] MEDS: Empagliflozin 10 MG TAB PO SCH (18:07)
[2023-04-26] MEDS: Rosuvastatin 10 MG TAB PO SCH (20:12)
[2023-04-26] MEDS: diphenhydrAMINE 25 MG CAP PO PRN (20:49)
[2023-04-26 22:56] LABS: Bacteria/HPF 1+ HPF (None Seen); Bilirubin Negative (Negative); Blood, Urine 2+ (Negative); Clarity Turbid (Clear); Glucose, Urine (Dipstick) 100 mg/dL (Negative); Ketone, Urine Negative (Negative); Leukocyte 250 Leu/uL (Negative); Nitrite Negative (Negative); Protein, Urine (Dipstick) 300 mg/dL (Neg-Trace); Specific Gravity, Urine 1.018 (1.002-1.036); Urobilinogen Normal mg/dL (Less than 2); WBC/HPF Greater than 50 HPF (0-3)
[2023-04-26] MEDS: cefTRIAXone\\ROCEPHIN 1 GM in Sodium Chloride 0.9% 100 ML IVPB SCH (23:55)
[2023-04-27] MEDS: Phenazopyridine HCl 100 MG TAB PO SCH (01:32)
[2023-04-27] MEDS ORDERED: hydrOXYzine 25 MG TAB PO PRN (04:35)
[2023-04-27] MEDS: hydrOXYzine 25 MG TAB PO SCH (04:44)
[2023-04-27 05:43] LABS: #Eosinphils 0.3 thou/uL (0.0-0.7); #Monocytes 0.8 thou/uL (0.11-0.59); #Neutrophils 3.1 thou/uL (1.40-6.50); %Basophils 0.6 % (0.0-1.0); %Eosinophils 6.1 % (0.0-10.0); %Lymphocytes 20.3 % (21.0-51.0); %Neutrophils 57.8 % (42.0-75.0); Hematocrit 29.7 % (36.0-47.0); Hemoglobin 10.6 g/dL (12.0-16.0); Mean Corpuscular HGB CONC 35.7 g/dL (32.0-36.0); Mean Corpuscular Hemoglobin 31.7 pg (27.0-31.0); Mean Corpuscular Volume 88.9 fl (78.0-98.0); Mean Platelet Volume 9.6 fL (7.4-10.4); Platelet Count 229 10x3/uL (130-400); RBC Distribution Width 13.7 % (11.5-14.5); Red Blood Cell (RBC) Count 3.34 mill/uL (4.20-5.40); White Blood Cell (WBC) Count 5.3 10x3/uL (4.8-10.8)
[2023-04-27 06:13] LABS: ALT (SGPT) 11 U/L (8-55); AST (SGOT) 18 U/L (5-34); Albumin 2.1 g/dL (3.4-4.8); Alkaline Phosphatase 45 U/L (40-110); Anion Gap 13 mmol/L (10-20); BUN (Urea Nitrogen) 43 mg/dL (9.8-20.1); Bilirubin, Total 0.4 mg/dL (0.2-1.2); Calc. Creatinine Clearance 25 mL/min (70-130); Calcium 8.1 mg/dL (7.8-10.44); Carbon Dioxide 22 mmol/L (23-31); Chloride 98 mmol/L (98-107); Estimated GFR 21; Globulin 2.3 g/dL (2.4-3.5); Glucose 92 mg/dL (83-110); Magnesium 2.1 mg/dL (1.6-2.6); Potassium 3.4 mmol/L (3.5-5.1); Protein, Total 4.4 g/dL (5.8-8.1); Sodium 130 mmol/L (136-145)
[2023-04-27 06:16] LABS: Troponin I 0.032 ng/mL (< 0.028)
[2023-04-27] MEDS: Clopidogrel Bisulfate 75 MG TAB PO SCH (08:31)
[2023-04-27] MEDS: hydrOXYzine 25 MG TAB PO PRN (08:31)
[2023-04-27] MEDS: Aspirin 81 mg Enteric Coated Tablet PO SCH (08:31)
[2023-04-27] MEDS: Potassium Chloride 20 MEQ TAB PO SCH (08:32)
[2023-04-27] MEDS: Furosemide 40 MG (4 mL) VIAL SLOW IVP SCH ×2 (14:18→20:16)
[2023-04-27] MEDS: Empagliflozin 10 MG TAB PO SCH (14:18)
[2023-04-27] MEDS: Albumin 25% 25 GM (100 mL) BOT IVPB SCH (17:51)
[2023-04-28 05:20] LABS: #Eosinphils 0.5 thou/uL (0.0-0.7); #Monocytes 0.8 thou/uL (0.11-0.59); #Neutrophils 3.1 thou/uL (1.40-6.50); %Basophils 0.7 % (0.0-1.0); %Eosinophils 8.6 % (0.0-10.0); %Lymphocytes 21.3 % (21.0-51.0); %Monocytes 14.3 % (0.0-10.0); %Neutrophils 54.9 % (42.0-75.0); Hematocrit 25.6 % (36.0-47.0); Hemoglobin 9.1 g/dL (12.0-16.0); Mean Corpuscular HGB CONC 35.5 g/dL (32.0-36.0); Mean Corpuscular Hemoglobin 32.4 pg (27.0-31.0); Mean Corpuscular Volume 91.1 fl (78.0-98.0); Mean Platelet Volume 9.7 fL (7.4-10.4); Platelet Count 181 10x3/uL (130-400); Red Blood Cell (RBC) Count 2.81 mill/uL (4.20-5.40); White Blood Cell (WBC) Count 5.6 10x3/uL (4.8-10.8)
[2023-04-28 05:56] LABS: Anion Gap 10 mmol/L (10-20); BUN (Urea Nitrogen) 40 mg/dL (9.8-20.1); Calc. Creatinine Clearance 26 mL/min (70-130); Calcium 7.9 mg/dL (7.8-10.44); Carbon Dioxide 23 mmol/L (23-31); Cardiac Risk 2.8 (Less than 4.5); Chloride 101 mmol/L (98-107); Cholesterol 159 mg/dl (< 200 Desired); Estimated GFR 22; Glucose 84 mg/dL (83-110); HDL Cholesterol 57 mg/dL (>60 Neg Risk); LDL Cholesterol, Calculated 92 mg/dL; Potassium 3.3 mmol/L (3.5-5.1); Sodium 131 mmol/L (136-145); Triglycerides 52 mg/dL (Less than 150)
[2023-04-28] MEDS: Potassium Chloride 20 MEQ TAB PO SCH (08:08)
[2023-04-29] MEDS: Nitroglycerin 2% Ointment 1 INCH/1 GM Packet TOP SCH (00:15)
[2023-04-29] MEDS: Morphine 4 MG/ML VIAL ONE (00:35)
[2023-04-29] MEDS ORDERED: Nitroglycerin 0.4 MG TAB (25 Tab Bottle) SL PRN (00:42)
[2023-04-29 01:13] LABS: Troponin I 0.084 ng/mL (< 0.028)
[2023-04-29 04:27] LABS: #Eosinphils 0.2 thou/uL (0.0-0.7); #Monocytes 0.9 thou/uL (0.11-0.59); %Basophils 0.7 % (0.0-1.0); %Eosinophils 2.7 % (0.0-10.0); %Lymphocytes 15.3 % (21.0-51.0); %Monocytes 15.5 % (0.0-10.0); %Neutrophils 65.6 % (42.0-75.0); Hematocrit 26.7 % (36.0-47.0); Hemoglobin 9.5 g/dL (12.0-16.0); Mean Corpuscular HGB CONC 35.6 g/dL (32.0-36.0); Mean Corpuscular Hemoglobin 32.1 pg (27.0-31.0); Mean Corpuscular Volume 90.2 fl (78.0-98.0); Mean Platelet Volume 10.1 fL (7.4-10.4); Platelet Count 193 10x3/uL (130-400); Red Blood Cell (RBC) Count 2.96 mill/uL (4.20-5.40)
[2023-04-29 05:04] LABS: Anion Gap 14 mmol/L (10-20); BUN (Urea Nitrogen) 36 mg/dL (9.8-20.1); Calc. Creatinine Clearance 29 mL/min (70-130); Calcium 8.3 mg/dL (7.8-10.44); Carbon Dioxide 22 mmol/L (23-31); Chloride 103 mmol/L (98-107); Estimated GFR 25; Glucose 96 mg/dL (83-110); Potassium 3.4 mmol/L (3.5-5.1); Sodium 136 mmol/L (136-145)
[2023-04-29 05:04] LABS: Troponin I 0.095 ng/mL (< 0.028)
[2023-04-29 07:01] LABS: Troponin I 0.092 ng/mL (< 0.028)
[2023-04-29] MEDS: Potassium Chloride 20 MEQ TAB PO SCH (07:57)
[2023-04-29] MEDS: Losartan 25 MG TAB PO SCH (10:52)
[2023-04-29] MEDS: Nebivolol HCl 5 MG TAB PO SCH (10:52)
[2023-04-29] MEDS: Furosemide 40 MG TAB PO SCH (14:58)
[2023-04-29] MEDS: Melatonin 3 MG TAB PO PRN (21:31)
[2023-04-30] MEDS: Morphine 4 MG/ML VIAL SLOW IVP PRN (00:21)
[2023-04-30 07:06] LABS: #Eosinphils 0.6 thou/uL (0.0-0.7); #Monocytes 0.9 thou/uL (0.11-0.59); #Neutrophils 2.7 thou/uL (1.40-6.50); %Basophils 0.7 % (0.0-1.0); %Eosinophils 10.4 % (0.0-10.0); %Lymphocytes 24.7 % (21.0-51.0); %Monocytes 15.5 % (0.0-10.0); %Neutrophils 48.5 % (42.0-75.0); Hematocrit 25.5 % (36.0-47.0); Hemoglobin 8.8 g/dL (12.0-16.0); Mean Corpuscular HGB CONC 34.5 g/dL (32.0-36.0); Mean Corpuscular Hemoglobin 31.8 pg (27.0-31.0); Mean Corpuscular Volume 92.1 fl (78.0-98.0); Mean Platelet Volume 10.4 fL (7.4-10.4); Platelet Count 172 10x3/uL (130-400); RBC Distribution Width 14.4 % (11.5-14.5); Red Blood Cell (RBC) Count 2.77 mill/uL (4.20-5.40); White Blood Cell (WBC) Count 5.5 10x3/uL (4.8-10.8)
[2023-04-30 07:23] LABS: Anion Gap 12 mmol/L (10-20); BUN (Urea Nitrogen) 32 mg/dL (9.8-20.1); Calc. Creatinine Clearance 29 mL/min (70-130); Calcium 7.6 mg/dL (7.8-10.44); Carbon Dioxide 23 mmol/L (23-31); Chloride 103 mmol/L (98-107); Estimated GFR 26; Glucose 90 mg/dL (83-110); Potassium 3.7 mmol/L (3.5-5.1); Sodium 134 mmol/L (136-145)
[2023-04-30] MEDS: Losartan 25 MG TAB PO SCH (08:05)
[2023-04-30] MEDS: Nebivolol HCl 5 MG TAB PO SCH (08:06)
[2023-04-30] MEDS ORDERED: CATH FS PRN (08:15)
[2023-04-30] MEDS ORDERED: Polyethylene Glycol 3350 17 GM Packet PO PRN (08:21)
[2023-04-30] MEDS: Senokot S 8.6-50 MG TAB PO SCH (09:17)
[2023-04-30] MEDS: Guaifenesin DM 100-10/5 ML UDCUP PO PRN (16:23)
[2023-05-01 05:29] LABS: #Eosinphils 0.6 thou/uL (0.0-0.7); #Monocytes 0.8 thou/uL (0.11-0.59); #Neutrophils 2.4 thou/uL (1.40-6.50); %Basophils 0.6 % (0.0-1.0); %Eosinophils 11.4 % (0.0-10.0); %Lymphocytes 23.2 % (21.0-51.0); %Monocytes 16.2 % (0.0-10.0); %Neutrophils 48.4 % (42.0-75.0); Hematocrit 26.5 % (36.0-47.0); Mean Corpuscular Hemoglobin 31.6 pg (27.0-31.0); Mean Platelet Volume 10.1 fL (7.4-10.4); Platelet Count 183 10x3/uL (130-400); RBC Distribution Width 14.4 % (11.5-14.5); Red Blood Cell (RBC) Count 2.85 mill/uL (4.20-5.40)
[2023-05-01] MEDS ORDERED: Sodium Chloride 0.9% 1,000 ML IV SCH (06:00)
[2023-05-01 06:01] LABS: Anion Gap 10 mmol/L (10-20); BUN (Urea Nitrogen) 29 mg/dL (9.8-20.1); Calc. Creatinine Clearance 0 mL/min (70-130); Calcium 7.5 mg/dL (7.8-10.44); Carbon Dioxide 25 mmol/L (23-31); Chloride 102 mmol/L (98-107); Estimated GFR 28; Glucose 90 mg/dL (83-110); Magnesium 1.8 mg/dL (1.6-2.6); Potassium 3.3 mmol/L (3.5-5.1); Sodium 134 mmol/L (136-145)
[2023-05-01] MEDS ORDERED: Midazolam HCl 2 mg/2 ml Vial ONE (06:11)
[2023-05-01] MEDS ORDERED: fentaNYL 50 mcg/mL 1 mL Vial ONE (06:11)
[2023-05-01] MEDS ORDERED: Heparin 10,000 UNITS/ 10 ML VIAL ONE (06:48)
[2023-05-01] MEDS ORDERED: Metoprolol Tartrate 5 MG (5 mL) VIAL ONE (07:02)
[2023-05-01] MEDS ORDERED: hydrALAZINE 20 MG/ML VIAL ONE (07:18)
[2023-05-01] MEDS ORDERED: Nitroglycerin 4.9 GM Bottle ONE (07:29)
[2023-05-01] MEDS ORDERED: Furosemide 40 MG (4 mL) VIAL ONE (07:46)
[2023-05-01] MEDS ORDERED: Nitroglycerin 0.4 MG TAB (25 Tab Bottle) SL PRN (08:30)
[2023-05-01] MEDS ORDERED: Acetaminophen/Codeine 30-300mg Tablet PO PRN (08:30)
[2023-05-01] MEDS ORDERED: Sodium Chloride 0.9% 200 ML IV PRN (08:30)
[2023-05-01] MEDS: Magnesium 2 GM/50 ML(in water) 2 GM in Premix 1 BAG IVPB SCH (09:16)
[2023-05-01] MEDS: Potassium Chloride 20 MEQ TAB PO SCH (09:16)
[2023-05-01] MEDS: Furosemide 40 MG (4 mL) VIAL SLOW IVP SCH (18:21)
[2023-05-02 04:34] LABS: #Eosinphils 0.4 thou/uL (0.0-0.7); #Monocytes 0.9 thou/uL (0.11-0.59); #Neutrophils 3.1 thou/uL (1.40-6.50); %Basophils 0.6 % (0.0-1.0); %Eosinophils 6.9 % (0.0-10.0); %Monocytes 16.5 % (0.0-10.0); %Neutrophils 57.8 % (42.0-75.0); Hematocrit 23.6 % (36.0-47.0); Hemoglobin 8.1 g/dL (12.0-16.0); Mean Corpuscular HGB CONC 34.3 g/dL (32.0-36.0); Mean Corpuscular Hemoglobin 31.9 pg (27.0-31.0); Mean Corpuscular Volume 92.9 fl (78.0-98.0); Mean Platelet Volume 9.8 fL (7.4-10.4); Platelet Count 156 10x3/uL (130-400); RBC Distribution Width 14.3 % (11.5-14.5); Red Blood Cell (RBC) Count 2.54 mill/uL (4.20-5.40); White Blood Cell (WBC) Count 5.4 10x3/uL (4.8-10.8)
[2023-05-02 04:59] LABS: Anion Gap 7 mmol/L (10-20); BUN (Urea Nitrogen) 32 mg/dL (9.8-20.1); Calc. Creatinine Clearance 27 mL/min (70-130); Carbon Dioxide 26 mmol/L (23-31); Chloride 101 mmol/L (98-107); Estimated GFR 25; Glucose 104 mg/dL (83-110); Potassium 3.3 mmol/L (3.5-5.1); Sodium 131 mmol/L (136-145)
[2023-05-02] MEDS: Potassium Chloride 20 MEQ TAB PO SCH (09:35)
[2023-05-02] MEDS: Furosemide 40 MG TAB PO SCH (09:36)
[2023-05-02] MEDS: Nebivolol HCl 5 MG TAB PO SCH (09:36)
[2023-05-02] MEDS: Albumin 25% 25 GM (100 mL) BOT IVPB SCH (13:36)
[2023-05-03 03:58] LABS: #Eosinphils 0.6 thou/uL (0.0-0.7); #Monocytes 0.8 thou/uL (0.11-0.59); #Neutrophils 2.8 thou/uL (1.40-6.50); %Basophils 0.6 % (0.0-1.0); %Lymphocytes 17.2 % (21.0-51.0); %Monocytes 15.2 % (0.0-10.0); Hemoglobin 8.1 g/dL (12.0-16.0); Mean Corpuscular HGB CONC 33.8 g/dL (32.0-36.0); Mean Corpuscular Hemoglobin 31.6 pg (27.0-31.0); Mean Corpuscular Volume 93.8 fl (78.0-98.0); Mean Platelet Volume 9.7 fL (7.4-10.4); Platelet Count 149 10x3/uL (130-400); RBC Distribution Width 14.5 % (11.5-14.5); Red Blood Cell (RBC) Count 2.56 mill/uL (4.20-5.40)
[2023-05-03 04:32] LABS: Anion Gap 9 mmol/L (10-20); BUN (Urea Nitrogen) 30 mg/dL (9.8-20.1); Calc. Creatinine Clearance 27 mL/min (70-130); Calcium 7.2 mg/dL (7.8-10.44); Carbon Dioxide 24 mmol/L (23-31); Chloride 102 mmol/L (98-107); Estimated GFR 25; Glucose 102 mg/dL (83-110); Potassium 3.5 mmol/L (3.5-5.1); Sodium 131 mmol/L (136-145)
[2023-05-03] MEDS: Potassium Chloride 20 MEQ TAB PO SCH (08:38)
[2023-05-03] MEDS: Nebivolol HCl 5 MG TAB PO SCH (12:25)
[2023-05-03] MEDS: Furosemide 40 MG (4 mL) VIAL SLOW IVP SCH (14:10)
[2023-05-03] MEDS: Acetaminophen/Codeine 30-300mg Tablet PO PRN (20:40)
[2023-05-04 04:44] LABS: #Eosinphils 0.5 thou/uL (0.0-0.7); #Monocytes 0.9 thou/uL (0.11-0.59); #Neutrophils 2.3 thou/uL (1.40-6.50); %Basophils 0.8 % (0.0-1.0); %Eosinophils 10.8 % (0.0-10.0); %Lymphocytes 21.8 % (21.0-51.0); %Monocytes 18.4 % (0.0-10.0); Hematocrit 24.5 % (36.0-47.0); Hemoglobin 8.3 g/dL (12.0-16.0); Mean Corpuscular HGB CONC 33.9 g/dL (32.0-36.0); Mean Corpuscular Volume 94.6 fl (78.0-98.0); Mean Platelet Volume 10.4 fL (7.4-10.4); Platelet Count 183 10x3/uL (130-400); RBC Distribution Width 14.1 % (11.5-14.5); Red Blood Cell (RBC) Count 2.59 mill/uL (4.20-5.40); White Blood Cell (WBC) Count 4.7 10x3/uL (4.8-10.8)
[2023-05-04 05:11] LABS: Anion Gap 13 mmol/L (10-20); BUN (Urea Nitrogen) 29 mg/dL (9.8-20.1); Calc. Creatinine Clearance 29 mL/min (70-130); Carbon Dioxide 19 mmol/L (23-31); Chloride 102 mmol/L (98-107); Estimated GFR 27; Glucose 88 mg/dL (83-110); Potassium 3.5 mmol/L (3.5-5.1); Sodium 130 mmol/L (136-145)
[2023-05-04 05:13] LABS: Calcium 6.8 mg/dL (7.8-10.44); Critical Call Chemistry NUR.KD0 @0513
[2023-05-04] MEDS: Furosemide 40 MG (4 mL) VIAL SLOW IVP SCH (06:21)
[2023-05-04] MEDS: Potassium Chloride 20 MEQ TAB PO SCH (08:03)
[2023-05-04] MEDS: Nebivolol HCl 5 MG TAB PO SCH (08:04)
[2023-05-04] MEDS ORDERED: Ipratropium/Albuterol 3 ML NEB NEB PRN (13:05)
[2023-05-04] MEDS: Albumin 25% 25 GM (100 mL) BOT IVPB SCH ×2 (14:30→20:51)
[2023-05-04] MEDS: Ipratropium/Albuterol 3 ML NEB NEB SCH (14:48)
[2023-05-04] MEDS: Losartan 25 MG TAB PO SCH (20:51)
[2023-05-05 05:11] LABS: #Eosinphils 0.4 thou/uL (0.0-0.7); #Monocytes 0.8 thou/uL (0.11-0.59); #Neutrophils 2.2 thou/uL (1.40-6.50); %Basophils 0.9 % (0.0-1.0); %Eosinophils 9.2 % (0.0-10.0); %Lymphocytes 22.3 % (21.0-51.0); %Monocytes 16.9 % (0.0-10.0); %Neutrophils 50.5 % (42.0-75.0); Hematocrit 25.6 % (36.0-47.0); Hemoglobin 8.7 g/dL (12.0-16.0); Mean Corpuscular Hemoglobin 31.4 pg (27.0-31.0); Mean Corpuscular Volume 92.4 fl (78.0-98.0); Mean Platelet Volume 10.6 fL (7.4-10.4); Platelet Count 180 10x3/uL (130-400); RBC Distribution Width 13.9 % (11.5-14.5); Red Blood Cell (RBC) Count 2.77 mill/uL (4.20-5.40); White Blood Cell (WBC) Count 4.4 10x3/uL (4.8-10.8)
[2023-05-05 05:36] LABS: Anion Gap 11 mmol/L (10-20); BUN (Urea Nitrogen) 29 mg/dL (9.8-20.1); Calc. Creatinine Clearance 27 mL/min (70-130); Calcium 7.6 mg/dL (7.8-10.44); Carbon Dioxide 19 mmol/L (23-31); Chloride 105 mmol/L (98-107); Estimated GFR 24; Glucose 98 mg/dL (83-110); Potassium 3.4 mmol/L (3.5-5.1); Sodium 132 mmol/L (136-145)
[2023-05-05] MEDS: Potassium Bicarbonate/Cit Ac 20 MEQ TAB PO SCH (08:18)
[2023-05-05] MEDS: Nebivolol HCl 5 MG TAB PO SCH (08:19)
[2023-05-05] MEDS: Amlodipine 10 MG TAB PO SCH (08:27)
[2023-05-05] MEDS ORDERED: Amlodipine 5 MG TAB PO SCH (09:00)
[2023-05-05 14:38] LABS: Potassium 3.6 mmol/L (3.5-5.1)
[2023-05-06 05:20] LABS: #Basophils 0.1 thou/uL (0.0-0.2); #Eosinphils 0.4 thou/uL (0.0-0.7); #Monocytes 0.7 thou/uL (0.11-0.59); %Basophils 1.2 % (0.0-1.0); %Eosinophils 9.4 % (0.0-10.0); %Lymphocytes 23.8 % (21.0-51.0); %Monocytes 17.3 % (0.0-10.0); %Neutrophils 48.3 % (42.0-75.0); Hematocrit 24.4 % (36.0-47.0); Hemoglobin 8.4 g/dL (12.0-16.0); Mean Corpuscular HGB CONC 34.4 g/dL (32.0-36.0); Mean Corpuscular Hemoglobin 32.2 pg (27.0-31.0); Mean Corpuscular Volume 93.5 fl (78.0-98.0); Platelet Count 194 10x3/uL (130-400); RBC Distribution Width 14.2 % (11.5-14.5); Red Blood Cell (RBC) Count 2.61 mill/uL (4.20-5.40); White Blood Cell (WBC) Count 4.2 10x3/uL (4.8-10.8)
[2023-05-06 05:52] LABS: Anion Gap 8 mmol/L (10-20); BUN (Urea Nitrogen) 26 mg/dL (9.8-20.1); Calc. Creatinine Clearance 28 mL/min (70-130); Calcium 7.6 mg/dL (7.8-10.44); Carbon Dioxide 21 mmol/L (23-31); Chloride 106 mmol/L (98-107); Estimated GFR 26; Glucose 84 mg/dL (83-110); Potassium 3.3 mmol/L (3.5-5.1); Sodium 132 mmol/L (136-145)
[2023-05-06] MEDS: Potassium Bicarbonate/Cit Ac 20 MEQ TAB PO SCH (08:30)
[2023-05-06 09:11] LABS: Magnesium 1.9 mg/dL (1.6-2.6); Phosphorus 3.3 mg/dL (2.3-4.7)
[2023-05-06] MEDS: Magnesium 2 GM/50 ML(in water) 2 GM in Premix 1 BAG IVPB SCH (12:39)
[2023-05-06 12:44] VITALS: BMI 29.2
[2023-05-07 04:35] LABS: #Eosinphils 0.4 thou/uL (0.0-0.7); #Monocytes 0.7 thou/uL (0.11-0.59); #Neutrophils 2.2 thou/uL (1.40-6.50); %Basophils 0.7 % (0.0-1.0); %Eosinophils 8.2 % (0.0-10.0); %Lymphocytes 27.9 % (21.0-51.0); %Monocytes 15.1 % (0.0-10.0); %Neutrophils 48.1 % (42.0-75.0); Hematocrit 26.4 % (36.0-47.0); Hemoglobin 9.1 g/dL (12.0-16.0); Mean Corpuscular HGB CONC 34.5 g/dL (32.0-36.0); Mean Corpuscular Hemoglobin 31.9 pg (27.0-31.0); Mean Corpuscular Volume 92.6 fl (78.0-98.0); Mean Platelet Volume 10.3 fL (7.4-10.4); Platelet Count 223 10x3/uL (130-400); Red Blood Cell (RBC) Count 2.85 mill/uL (4.20-5.40); White Blood Cell (WBC) Count 4.5 10x3/uL (4.8-10.8)
[2023-05-07 04:59] LABS: Anion Gap 9 mmol/L (10-20); BUN (Urea Nitrogen) 25 mg/dL (9.8-20.1); Calc. Creatinine Clearance 25 mL/min (70-130); Calcium 7.6 mg/dL (7.8-10.44); Carbon Dioxide 22 mmol/L (23-31); Chloride 106 mmol/L (98-107); Estimated GFR 23; Glucose 93 mg/dL (83-110); Potassium 3.4 mmol/L (3.5-5.1); Sodium 134 mmol/L (136-145)
[2023-05-07] MEDS: Bumetanide 1 MG TAB PO SCH (08:53)
[2023-05-07] MEDS: Potassium Chloride 20 MEQ TAB PO SCH (08:54)
[2023-05-07] MEDS: Losartan 25 MG TAB PO SCH (08:54)
[2023-05-07 11:28] VITALS: TEMP 97.6
[2023-05-07 11:34] VITALS: BP 149/74
== END 2023-05-07 12:22 | disposition home or self-care (01) | DRG 286 ==
LOC: ERS 20:19 → ERHOLD 23:58 → 2SE 04-26 16:33 → OBSVTOIN 04-27 13:57
PROVIDERS: ADMIT Student in an Organized Health Care Education/Training Program; ATTEND Family Medicine
PROC: 30233N1 Transfusion of Nonautologous Red Blood Cells into Peripheral Vein, Percutaneous Approach (ICD-10-PCS; principal; 2023-04-27)
PROC: 4A023N7 Measurement of Cardiac Sampling and Pressure, Left Heart, Percutaneous Approach (ICD-10-PCS; 2023-05-01)
PROC: B2111ZZ Fluoroscopy of Multiple Coronary Arteries using Low Osmolar Contrast (ICD-10-PCS; 2023-05-01)
PROC: B2151ZZ Fluoroscopy of Left Heart using Low Osmolar Contrast (ICD-10-PCS; 2023-05-01)
DX: I13.0 Hypertensive heart and chronic kidney disease with heart failure and stage 1 through stage 4 chronic kidney disease, or unspecified chronic kidney disease (principal); I50.33 Acute on chronic diastolic (congestive) heart failure; J96.01 Acute respiratory failure with hypoxia; N17.9 Acute kidney failure, unspecified; E87.1 Hypo-osmolality and hyponatremia; N39.0 Urinary tract infection, site not specified; I47.20 Ventricular tachycardia, unspecified; D64.9 Anemia, unspecified; E87.6 Hypokalemia; N18.30 Chronic kidney disease, stage 3 unspecified; I25.10 Atherosclerotic heart disease of native coronary artery without angina pectoris; E78.5 Hyperlipidemia, unspecified; E88.09 Other disorders of plasma-protein metabolism, not elsewhere classified; R31.9 Hematuria, unspecified; E83.42 Hypomagnesemia; Z86.73 Personal history of transient ischemic attack (TIA), and cerebral infarction without residual deficits; Z91.018 Allergy to other foods; Z79.82 Long term (current) use of aspirin; Z79.899 Other long term (current) drug therapy
CPT/HCPCS: 36415; 36416; 71045; 80048; 80053; 80061; 81001; 82040; 82570; 82728; 83540; 83550; 83735; 83880; 84100; 84156; 84443; 84484; 85025; 87086; 93005; 93010; 93306; 93454; 93798; 94640; 94760; 96372; 96374; 96375; 96376; C1894; G0378; J0360; J0696; J1644; J1940; J2250; J2270; J3010; J3475; J3490; J7620; P9047

== ENCOUNTER 2023-05-25 13:06 | Inpatient (IN) | payer MEDICARE ==
[2023-05-25] MEDS ORDERED: Furosemide 40 MG (4 mL) VIAL ONE (13:51)
[2023-05-25 13:56] LABS: #Eosinphils 0.3 thou/uL (0.0-0.7); #Monocytes 0.6 thou/uL (0.11-0.59); %Basophils 0.4 % (0.0-1.0); %Eosinophils 5.3 % (0.0-10.0); %Monocytes 13.1 % (0.0-10.0); %Neutrophils 60.2 % (42.0-75.0); Hematocrit 24.9 % (36.0-47.0); Hemoglobin 8.5 g/dL (12.0-16.0); Mean Corpuscular HGB CONC 34.1 g/dL (32.0-36.0); Mean Corpuscular Volume 93.6 fl (78.0-98.0); Mean Platelet Volume 9.4 fL (7.4-10.4); Platelet Count 205 10x3/uL (130-400); RBC Distribution Width 14.1 % (11.5-14.5); Red Blood Cell (RBC) Count 2.66 mill/uL (4.20-5.40); White Blood Cell (WBC) Count 4.9 10x3/uL (4.8-10.8)
[2023-05-25 14:31] LABS: ALT (SGPT) 12 U/L (8-55); AST (SGOT) 19 U/L (5-34); Albumin 2.8 g/dL (3.4-4.8); Alkaline Phosphatase 49 U/L (40-110); Anion Gap 15 mmol/L (10-20); BUN (Urea Nitrogen) 80 mg/dL (9.8-20.1); Bilirubin, Total 0.3 mg/dL (0.2-1.2); Calc. Creatinine Clearance 0 mL/min (70-130); Calcium 8.1 mg/dL (7.8-10.44); Carbon Dioxide 19 mmol/L (23-31); Chloride 104 mmol/L (98-107); Estimated GFR 10; Globulin 2.4 g/dL (2.4-3.5); Glucose 112 mg/dL (83-110); Protein, Total 5.2 g/dL (5.8-8.1); Sodium 134 mmol/L (136-145)
[2023-05-25 14:56] LABS: Troponin I 0.026 ng/mL (< 0.028)
[2023-05-25] MEDS ORDERED: hydrOXYzine Pamoate 25 mg Capsule PO PRN (15:31)
[2023-05-25] MEDS ORDERED: Albumin 25% 100 ML ONE (17:44)
[2023-05-25] MEDS: Albumin 25% 25 GM (100 mL) BOT IVPB SCH (17:58)
[2023-05-25] MEDS: Melatonin 3 MG TAB PO PRN (20:36)
[2023-05-25] MEDS: Heparin 5,000 UNITS/ML VIAL SC SCH (20:36)
[2023-05-25] MEDS: Rosuvastatin 10 MG TAB PO SCH (20:36)
[2023-05-25 21:52] LABS: Bacteria/HPF None Seen HPF (None Seen); Bilirubin Negative (Negative); Blood, Urine 2+ (Negative); Clarity Clear (Clear); Glucose, Urine (Dipstick) Normal (Negative); Ketone, Urine Negative (Negative); Leukocyte Negative Leu/uL (Negative); Nitrite Negative (Negative); Protein, Urine (Dipstick) 300 mg/dL (Neg-Trace); Specific Gravity, Urine 1.011 (1.002-1.036); Squamous Epithelial 0-3 HPF (0-3); Urobilinogen Normal mg/dL (Less than 2); WBC/HPF 0-3 HPF (0-3)
[2023-05-26 05:32] LABS: #Eosinphils 0.5 thou/uL (0.0-0.7); #Monocytes 0.6 thou/uL (0.11-0.59); #Neutrophils 1.8 thou/uL (1.40-6.50); %Basophils 0.8 % (0.0-1.0); %Eosinophils 13.9 % (0.0-10.0); %Lymphocytes 24.9 % (21.0-51.0); %Monocytes 14.4 % (0.0-10.0); %Neutrophils 45.7 % (42.0-75.0); Hematocrit 22.2 % (36.0-47.0); Hemoglobin 7.5 g/dL (12.0-16.0); Mean Corpuscular HGB CONC 33.8 g/dL (32.0-36.0); Mean Corpuscular Hemoglobin 32.1 pg (27.0-31.0); Mean Corpuscular Volume 94.9 fl (78.0-98.0); Mean Platelet Volume 9.5 fL (7.4-10.4); Platelet Count 172 10x3/uL (130-400); RBC Distribution Width 14.1 % (11.5-14.5); Red Blood Cell (RBC) Count 2.34 mill/uL (4.20-5.40); White Blood Cell (WBC) Count 3.8 10x3/uL (4.8-10.8)
[2023-05-26 06:14] LABS: Anion Gap 13 mmol/L (10-20); BUN (Urea Nitrogen) 77 mg/dL (9.8-20.1); Calc. Creatinine Clearance 13 mL/min (70-130); Carbon Dioxide 19 mmol/L (23-31); Chloride 106 mmol/L (98-107); Estimated GFR 11; Glucose 84 mg/dL (83-110); Potassium 3.3 mmol/L (3.5-5.1); Sodium 135 mmol/L (136-145)
[2023-05-26] MEDS: Furosemide 100 MG (10 mL) VIAL SLOW IVP SCH (06:16)
[2023-05-26] MEDS: Metolazone 5 MG TAB PO SCH (08:58)
[2023-05-26] MEDS: Clopidogrel Bisulfate 75 MG TAB PO SCH (08:59)
[2023-05-26] MEDS: Amlodipine 10 MG TAB PO SCH (08:59)
[2023-05-26] MEDS: Nebivolol HCl 5 MG TAB PO SCH (08:59)
[2023-05-26] MEDS: Potassium Chloride 20 MEQ TAB PO SCH (16:12)
[2023-05-27 06:24] LABS: #Eosinphils 0.5 thou/uL (0.0-0.7); #Monocytes 0.8 thou/uL (0.11-0.59); #Neutrophils 2.5 thou/uL (1.40-6.50); %Basophils 0.4 % (0.0-1.0); %Eosinophils 9.8 % (0.0-10.0); %Lymphocytes 26.4 % (21.0-51.0); %Monocytes 16.1 % (0.0-10.0); %Neutrophils 47.1 % (42.0-75.0); Hematocrit 24.4 % (36.0-47.0); Hemoglobin 8.3 g/dL (12.0-16.0); Mean Corpuscular Hemoglobin 31.2 pg (27.0-31.0); Mean Corpuscular Volume 91.7 fl (78.0-98.0); Mean Platelet Volume 10.5 fL (7.4-10.4); Platelet Count 183 10x3/uL (130-400); Red Blood Cell (RBC) Count 2.66 mill/uL (4.20-5.40); White Blood Cell (WBC) Count 5.2 10x3/uL (4.8-10.8)
[2023-05-27 06:48] LABS: Anion Gap 14 mmol/L (10-20); BUN (Urea Nitrogen) 76 mg/dL (9.8-20.1); Calc. Creatinine Clearance 14 mL/min (70-130); Calcium 8.4 mg/dL (7.8-10.44); Carbon Dioxide 22 mmol/L (23-31); Chloride 105 mmol/L (98-107); Estimated GFR 12; Glucose 91 mg/dL (83-110); Potassium 3.2 mmol/L (3.5-5.1); Sodium 138 mmol/L (136-145)
[2023-05-27] MEDS: Potassium Chloride 20 MEQ TAB PO SCH (09:48)
[2023-05-28 05:14] LABS: Hematocrit 24.2 % (36.0-47.0); Hemoglobin 8.4 g/dL (12.0-16.0)
[2023-05-28 05:45] LABS: Anion Gap 16 mmol/L (10-20); BUN (Urea Nitrogen) 74 mg/dL (9.8-20.1); Calc. Creatinine Clearance 16 mL/min (70-130); Calcium 8.4 mg/dL (7.8-10.44); Carbon Dioxide 23 mmol/L (23-31); Chloride 106 mmol/L (98-107); Estimated GFR 13; Glucose 93 mg/dL (83-110); Potassium 3.3 mmol/L (3.5-5.1); Sodium 142 mmol/L (136-145)
[2023-05-28] MEDS: Acetaminophen 325 MG TAB PO PRN (21:59)
[2023-05-29 05:31] LABS: Anion Gap 14 mmol/L (10-20); BUN (Urea Nitrogen) 69 mg/dL (9.8-20.1); Calc. Creatinine Clearance 16 mL/min (70-130); Calcium 8.3 mg/dL (7.8-10.44); Carbon Dioxide 24 mmol/L (23-31); Chloride 108 mmol/L (98-107); Estimated GFR 14; Glucose 94 mg/dL (83-110); Potassium 3.4 mmol/L (3.5-5.1); Sodium 143 mmol/L (136-145)
[2023-05-29] MEDS: Bumetanide 1 MG TAB PO SCH (15:44)
[2023-05-30 06:10] LABS: Anion Gap 12 mmol/L (10-20); BUN (Urea Nitrogen) 69 mg/dL (9.8-20.1); Calc. Creatinine Clearance 14 mL/min (70-130); Calcium 8.4 mg/dL (7.8-10.44); Carbon Dioxide 26 mmol/L (23-31); Chloride 107 mmol/L (98-107); Estimated GFR 13; Glucose 101 mg/dL (83-110); Potassium 3.4 mmol/L (3.5-5.1); Sodium 142 mmol/L (136-145)
[2023-05-30 12:26] VITALS: BMI 25.4
[2023-05-31 06:05] LABS: #Eosinphils 0.6 thou/uL (0.0-0.7); #Monocytes 0.7 thou/uL (0.11-0.59); #Neutrophils 2.7 thou/uL (1.40-6.50); %Basophils 0.5 % (0.0-1.0); %Monocytes 13.2 % (0.0-10.0); %Neutrophils 48.1 % (42.0-75.0); Hematocrit 25.8 % (36.0-47.0); Hemoglobin 8.5 g/dL (12.0-16.0); Mean Corpuscular HGB CONC 32.9 g/dL (32.0-36.0); Mean Corpuscular Hemoglobin 31.1 pg (27.0-31.0); Mean Corpuscular Volume 94.5 fl (78.0-98.0); Mean Platelet Volume 11.4 fL (7.4-10.4); Platelet Count 179 10x3/uL (130-400); RBC Distribution Width 14.3 % (11.5-14.5); Red Blood Cell (RBC) Count 2.73 mill/uL (4.20-5.40); White Blood Cell (WBC) Count 5.6 10x3/uL (4.8-10.8)
[2023-05-31 06:28] LABS: Anion Gap 13 mmol/L (10-20); BUN (Urea Nitrogen) 64 mg/dL (9.8-20.1); Calc. Creatinine Clearance 15 mL/min (70-130); Calcium 8.3 mg/dL (7.8-10.44); Carbon Dioxide 26 mmol/L (23-31); Chloride 107 mmol/L (98-107); Estimated GFR 14; Glucose 87 mg/dL (83-110); Potassium 3.6 mmol/L (3.5-5.1); Sodium 142 mmol/L (136-145)
[2023-06-01 05:36] LABS: #Eosinphils 0.4 thou/uL (0.0-0.7); #Monocytes 0.8 thou/uL (0.11-0.59); #Neutrophils 2.6 thou/uL (1.40-6.50); %Basophils 0.4 % (0.0-1.0); %Eosinophils 8.3 % (0.0-10.0); %Lymphocytes 26.8 % (21.0-51.0); %Monocytes 15.8 % (0.0-10.0); %Neutrophils 48.5 % (42.0-75.0); Hematocrit 25.3 % (36.0-47.0); Hemoglobin 8.4 g/dL (12.0-16.0); Mean Corpuscular HGB CONC 33.2 g/dL (32.0-36.0); Mean Corpuscular Hemoglobin 32.1 pg (27.0-31.0); Mean Corpuscular Volume 96.6 fl (78.0-98.0); Platelet Count 164 10x3/uL (130-400); RBC Distribution Width 14.3 % (11.5-14.5); Red Blood Cell (RBC) Count 2.62 mill/uL (4.20-5.40); White Blood Cell (WBC) Count 5.3 10x3/uL (4.8-10.8)
[2023-06-01 06:45] LABS: Anion Gap 12 mmol/L (10-20); BUN (Urea Nitrogen) 64 mg/dL (9.8-20.1); Calc. Creatinine Clearance 15 mL/min (70-130); Calcium 8.1 mg/dL (7.8-10.44); Carbon Dioxide 27 mmol/L (23-31); Chloride 108 mmol/L (98-107); Estimated GFR 14; Glucose 90 mg/dL (83-110); Potassium 3.5 mmol/L (3.5-5.1); Sodium 143 mmol/L (136-145)
[2023-06-01 11:12] VITALS: BP 125/65; TEMP 98.4
== END 2023-06-01 12:30 | disposition home or self-care (01) | DRG 682 ==
LOC: ERS 13:06 → ERHOLD 15:07 → 2NO 19:27
PROVIDERS: ADMIT Family Medicine; ATTEND Hospitalist
PROC: 30233J1 Transfusion of Nonautologous Serum Albumin into Peripheral Vein, Percutaneous Approach (ICD-10-PCS; principal; 2023-05-25)
DX: N17.9 Acute kidney failure, unspecified (principal); I50.33 Acute on chronic diastolic (congestive) heart failure; I13.0 Hypertensive heart and chronic kidney disease with heart failure and stage 1 through stage 4 chronic kidney disease, or unspecified chronic kidney disease; E87.20 Acidosis, unspecified; E87.1 Hypo-osmolality and hyponatremia; N18.5 Chronic kidney disease, stage 5; E78.5 Hyperlipidemia, unspecified; D63.1 Anemia in chronic kidney disease; Z79.899 Other long term (current) drug therapy; Z90.89 Acquired absence of other organs; Z98.51 Tubal ligation status; Z98.890 Other specified postprocedural states; K52.9 Noninfective gastroenteritis and colitis, unspecified; E87.6 Hypokalemia; E87.70 Fluid overload, unspecified; E88.09 Other disorders of plasma-protein metabolism, not elsewhere classified; N28.1 Cyst of kidney, acquired
CPT/HCPCS: 36415; 36416; 71045; 76770; 80048; 80053; 81001; 83880; 84484; 85014; 85018; 85025; 93005; 96374; J1644; J1940; P9047

== ENCOUNTER → 2023-11-19 | Day surgery (SDC) | payer MEDICARE | LOC: BICULT 10:59 | PROVIDERS: ATTEND Internal Medicine | PROC: 0H95XZX Drainage of Chest Skin, External Approach, Diagnostic (ICD-10-PCS; principal; 2023-11-19) | DX: C50.412 Malignant neoplasm of upper-outer quadrant of left female breast (principal) | CPT/HCPCS: 19083; 19084; 88305; 88361; 88377 ==

== ENCOUNTER 2023-12-17 07:09 | Inpatient (IN) | payer MEDICARE ==
[2023-12-14 11:06] VITALS: BMI 19.7
[2023-12-17] MEDS ORDERED: EPINEPHrine 1 MG/ML VIAL ONE (09:31)
[2023-12-17] MEDS ORDERED: Isosulfan Blue 50 MG/5 ML VIAL ONE (09:31)
[2023-12-17] MEDS ORDERED: Bupivacaine 0.25% HCL 30 ML VIAL ONE (09:31)
[2023-12-17] MEDS ORDERED: Acetaminophen 500 MG TAB ONE (09:39)
[2023-12-17] MEDS ORDERED: fentaNYL PF 100 MCG/2 ML SYRINGE ONE (09:41)
[2023-12-17] MEDS ORDERED: PROPOFOL 20 ML ONE (09:41)
[2023-12-17] MEDS ORDERED: Ketorolac Tromethamine 30 MG (1 mL) VIAL ONE (09:52)
[2023-12-17] MEDS ORDERED: Sodium Chloride 0.9% 100 ML ONE (09:52)
[2023-12-17] MEDS ORDERED: CEFAZOLIN 2 GM VIAL ONE (09:52)
[2023-12-17] MEDS ORDERED: Ketamine In 0.9 % NaCl 50 MG/5 ML SYRINGE ONE (10:34)
[2023-12-17] MEDS ORDERED: Dexamethasone 20 MG/5 ML VIAL ONE (10:51)
[2023-12-17] MEDS ORDERED: Ondansetron PF 4 MG/2 ML Vial ONE (10:51)
[2023-12-17] MEDS ORDERED: Glycopyrrolate 0.2 MG/ML 5 ML SYRINGE ONE (10:52)
[2023-12-17] MEDS ORDERED: hydrALAZINE 20 MG/ML VIAL ONE ×2 (13:09→13:15)
[2023-12-17] MEDS ORDERED: Morphine 2 MG/ML VIAL ONE (13:58)
[2023-12-17 17:07] LABS: Hematocrit 23.1 % (36.0-47.0); Hemoglobin 7.5 g/dL (12.0-16.0)
[2023-12-17] MEDS ORDERED: Calcium Carbonate 500 MG ChewTAB PO PRN (18:43)
[2023-12-17] MEDS ORDERED: Glucagon 1 MG/ML KIT IM PRN (18:43)
[2023-12-17] MEDS ORDERED: Acetaminophen 325 MG TAB PO PRN (18:43)
[2023-12-17] MEDS ORDERED: Promethazine HCl 25 MG/ML VIAL IM PRN (18:43)
[2023-12-17] MEDS ORDERED: hydrOXYzine 25 MG TAB PO PRN (18:43)
[2023-12-17] MEDS ORDERED: Morphine 2 MG/ML VIAL SLOW IVP PRN (18:43)
[2023-12-17] MEDS ORDERED: Dextrose 5% in Water 1,000 ML IV PRN (18:43)
[2023-12-17] MEDS ORDERED: Dextrose 50% Abboject 50 ML SYRINGE SLOW IVP PRN (18:43)
[2023-12-17] MEDS ORDERED: Ondansetron PF 4 MG/2 ML Vial IVP PRN (18:43)
[2023-12-17] MEDS ORDERED: Melatonin 3 MG TAB PO PRN (18:43)
[2023-12-17] MEDS ORDERED: Ipratropium/Albuterol 3 ML NEB NEB PRN (18:43)
[2023-12-17] MEDS ORDERED: hydrALAZINE 20 MG/ML VIAL SLOW IVP PRN (18:43)
[2023-12-17] MEDS: Famotidine 20 MG TAB PO SCH (20:44)
[2023-12-17] MEDS: Lactated Ringer's 1,000 ML IV SCH (20:44)
[2023-12-18 05:07] LABS: Anion Gap 8 mmol/L (10-20); BUN (Urea Nitrogen) 18 mg/dL (9.8-20.1); Calc. Creatinine Clearance 30 mL/min (70-130); Carbon Dioxide 26 mmol/L (23-31); Chloride 107 mmol/L (98-107); Estimated GFR 46; Glucose 146 mg/dL (83-110); Potassium 4.2 mmol/L (3.5-5.1); Sodium 137 mmol/L (136-145)
[2023-12-18 05:31] LABS: #Basophils Less than 0.03 10x3/uL (0.0-0.2); #Eosinphils Less than 0.03 10x3/uL (0.0-0.7); %Basophils 0.1 % (0.0-1.0); %Monocytes 8.4 % (0.0-10.0); %Neutrophils 84.1 % (42.0-75.0); Hematocrit 18.1 % (36.0-47.0); Hemoglobin 5.8 g/dL (12.0-16.0); Mean Corpuscular Hemoglobin 31.9 pg (27.0-31.0); Mean Corpuscular Volume 99.5 fL (78.0-98.0); Mean Platelet Volume 9.6 fL (7.4-10.4); Platelet Count 188 10x3/uL (130-400); RBC Distribution Width 14.1 % (11.5-14.5); Red Blood Cell (RBC) Count 1.82 mill/uL (4.20-5.40)
[2023-12-18] MEDS: Rosuvastatin 10 MG TAB PO SCH (08:40)
[2023-12-18] MEDS: Losartan 25 MG TAB PO SCH (08:40)
[2023-12-18] MEDS: Bumetanide 1 MG TAB PO SCH (08:40)
[2023-12-18] MEDS: Pantoprazole DR 40 MG TAB PO SCH (08:40)
[2023-12-18] MEDS: Potassium Bicarbonate/Cit Ac 20 MEQ TAB PO SCH (08:40)
[2023-12-18] MEDS ORDERED: Non-Formulary Item 1 EACH (Potassium Chloride [Potassium Chloride] 20 MEQ Tablet.Er) PO SCH (09:00)
[2023-12-18] MEDS: HYDROcodone/Acetaminophen 7.5/325 mg Tablet PO PRN (11:07)
[2023-12-18] MEDS ORDERED: fentaNYL 50 mcg/mL 1 mL Vial ONE (13:23)
[2023-12-18] MEDS ORDERED: PHENYLEPHRINE-NS 100 MCG/ML 10 ML SYRINGE ONE (13:23)
[2023-12-18] MEDS ORDERED: Lidocaine 2% PF 100 mg/5 ml Syringe ONE (13:23)
[2023-12-18] MEDS ORDERED: PROPOFOL 20 ML ONE (13:23)
[2023-12-18] MEDS ORDERED: Sodium Chloride 0.9% 100 ML ONE (14:23)
[2023-12-18] MEDS ORDERED: CEFAZOLIN 2 GM VIAL ONE (14:23)
[2023-12-18] MEDS ORDERED: Ondansetron PF 4 MG/2 ML Vial ONE (16:07)
[2023-12-18] MEDS ORDERED: Dexamethasone 4 mg/ml Vial ONE (16:07)
[2023-12-18] MEDS: Lactated Ringer's 1,000 ML IV SCH (18:30)
[2023-12-18 19:08] LABS: Mean Corpuscular Volume 90.3 fL (78.0-98.0)
[2023-12-18 19:09] LABS: #Basophils Less than 0.03 10x3/uL (0.0-0.2); #Eosinphils Less than 0.03 10x3/uL (0.0-0.7); %Basophils 0.1 % (0.0-1.0); %Lymphocytes 10.9 % (21.0-51.0); %Monocytes 12.1 % (0.0-10.0); %Neutrophils 76.7 % (42.0-75.0); Hematocrit 25.2 % (36.0-47.0); Hemoglobin 8.7 g/dL (12.0-16.0); Mean Corpuscular HGB CONC 34.5 g/dL (32.0-36.0); Mean Corpuscular Hemoglobin 31.2 pg (27.0-31.0); Platelet Count 185 10x3/uL (130-400); RBC Distribution Width 17.1 % (11.5-14.5); Red Blood Cell (RBC) Count 2.79 mill/uL (4.20-5.40)
[2023-12-19 06:10] LABS: #Basophils Less than 0.03 10x3/uL (0.0-0.2); #Eosinphils Less than 0.03 10x3/uL (0.0-0.7); %Basophils 0.1 % (0.0-1.0); %Eosinophils 0.1 % (0.0-10.0); %Lymphocytes 16.4 % (21.0-51.0); %Monocytes 12.9 % (0.0-10.0); %Neutrophils 70.1 % (42.0-75.0); Hematocrit 22.2 % (36.0-47.0); Hemoglobin 7.6 g/dL (12.0-16.0); Mean Corpuscular HGB CONC 34.2 g/dL (32.0-36.0); Mean Corpuscular Hemoglobin 30.6 pg (27.0-31.0); Mean Corpuscular Volume 89.5 fL (78.0-98.0); Mean Platelet Volume 10.2 fL (7.4-10.4); Platelet Count 159 10x3/uL (130-400); RBC Distribution Width 17.7 % (11.5-14.5); Red Blood Cell (RBC) Count 2.48 mill/uL (4.20-5.40)
[2023-12-19 06:21] LABS: Anion Gap 12 mmol/L (10-20); BUN (Urea Nitrogen) 20 mg/dL (9.8-20.1); Calc. Creatinine Clearance 30 mL/min (70-130); Carbon Dioxide 26 mmol/L (23-31); Chloride 104 mmol/L (98-107); Estimated GFR 46; Glucose 104 mg/dL (83-110); Potassium 4.2 mmol/L (3.5-5.1); Sodium 138 mmol/L (136-145)
[2023-12-19] MEDS: Famotidine 20 MG TAB PO SCH (08:54)
[2023-12-19 08:57] VITALS: BP 128/80; TEMP 97.8
[2023-12-19] MEDS: Acetaminophen 325 MG TAB PO PRN (10:14)
== END 2023-12-19 10:19 | disposition home or self-care (01) | DRG 580 ==
LOC: SDC 07:09 → SURG A 17:23 → OBSVTOIN 12-18 17:23
PROVIDERS: ADMIT Specialist; ATTEND Specialist
PROC: 0HBU0ZZ Excision of Left Breast, Open Approach (ICD-10-PCS; principal; 2023-12-17)
PROC: 07B60ZX Excision of Left Axillary Lymphatic, Open Approach, Diagnostic (ICD-10-PCS; 2023-12-17)
PROC: 3E033XZ Introduction of Vasopressor into Peripheral Vein, Percutaneous Approach (ICD-10-PCS; 2023-12-17)
PROC: 0HCU0ZZ Extirpation of Matter from Left Breast, Open Approach (ICD-10-PCS; 2023-12-18)
PROC: 30233N1 Transfusion of Nonautologous Red Blood Cells into Peripheral Vein, Percutaneous Approach (ICD-10-PCS; 2023-12-18)
DX: C50.412 Malignant neoplasm of upper-outer quadrant of left female breast (principal); D62 Acute posthemorrhagic anemia; L76.32 Postprocedural hematoma of skin and subcutaneous tissue following other procedure; Z79.899 Other long term (current) drug therapy; E78.00 Pure hypercholesterolemia, unspecified; I10 Essential (primary) hypertension; Z98.890 Other specified postprocedural states
CPT/HCPCS: 36415; 36430; 78195; 80048; 85014; 85018; 85025; 86850; 86900; 86901; 88307; 88309; 88342; A6258; A9541; G0378; J0171; J0360; J0665; J1100; J1885; J2001; J2272; J2405; J2704; J3010; J3490; J7120; P9016; Q9968

== ENCOUNTER 2024-01-14 09:36 | Outpatient (CLI) | payer MEDICARE | END 2024-01-14 09:37 | disposition home or self-care (01) | LOC: BICMAMMO 09:36 | PROVIDERS: ATTEND Internal Medicine | DX: M85.88 Other specified disorders of bone density and structure, other site (principal); M81.0 Age-related osteoporosis without current pathological fracture | CPT/HCPCS: 77080 ==

== ENCOUNTER 2024-02-23 18:50 | Observation (INO) | payer MEDICARE ==
[2024-02-23 19:40] LABS: #Basophils Less than 0.03 10x3/uL (0.0-0.2); %Basophils 0.1 % (0.0-1.0); %Eosinophils 0.4 % (0.0-10.0); %Lymphocytes 4.4 % (21.0-51.0); %Monocytes 6.3 % (0.0-10.0); %Neutrophils 88.5 % (42.0-75.0); Hematocrit 29.4 % (36.0-47.0); Hemoglobin 9.8 g/dL (12.0-16.0); Mean Corpuscular HGB CONC 33.3 g/dL (32.0-36.0); Mean Corpuscular Hemoglobin 31.8 pg (27.0-31.0); Mean Corpuscular Volume 95.5 fL (78.0-98.0); Mean Platelet Volume 9.7 fL (7.4-10.4); Platelet Count 142 10x3/uL (130-400); RBC Distribution Width 14.6 % (11.5-14.5); Red Blood Cell (RBC) Count 3.08 mill/uL (4.20-5.40)
[2024-02-23 19:58] LABS: ALT (SGPT) 16 U/L (8-55); AST (SGOT) 23 U/L (5-34); Albumin 3.7 g/dL (3.4-4.8); Alkaline Phosphatase 47 U/L (40-110); Anion Gap 14 mmol/L (10-20); BUN (Urea Nitrogen) 20 mg/dL (9.8-20.1); Bilirubin, Total 0.4 mg/dL (0.2-1.2); Calc. Creatinine Clearance 0 mL/min (70-130); Carbon Dioxide 23 mmol/L (23-31); Chloride 105 mmol/L (98-107); Estimated GFR 51; Globulin 2.8 g/dL (2.4-3.5); Glucose 127 mg/dL (83-110); Potassium 3.8 mmol/L (3.5-5.1); Protein, Total 6.5 g/dL (5.8-8.1); Sodium 138 mmol/L (136-145)
[2024-02-23 20:01] LABS: Troponin I Less than 0.010 ng/mL (< 0.028)
[2024-02-23] MEDS ORDERED: Enoxaparin 60 MG (0.6 mL) SYRINGE ONE (20:57)
[2024-02-24] MEDS ORDERED: Nitroglycerin 0.4 MG TAB (25 Tab Bottle) ONE (01:11)
[2024-02-24] MEDS ORDERED: traMADol HCl 50 MG TAB ONE (04:11)
[2024-02-24] MEDS ORDERED: Nebivolol HCl 5 MG TAB ONE (08:11)
[2024-02-24] MEDS ORDERED: Rosuvastatin 10 MG TAB ONE (08:11)
[2024-02-24] MEDS ORDERED: Clopidogrel Bisulfate 75 MG TAB ONE (08:11)
[2024-02-24] MEDS ORDERED: Losartan 25 MG TAB ONE (08:11)
[2024-02-24] MEDS ORDERED: Potassium Chloride 20 MEQ TAB ONE (08:11)
[2024-02-25 20:11] LABS: Troponin I Less than 0.010 ng/mL (< 0.028)
[2024-03-07 14:27] LABS: Troponin I Less than 0.010 ng/mL (< 0.028)
== END 2024-02-24 17:05 | disposition home or self-care (01) ==
LOC: ERS 18:50 → OBS 18:50 → UNDOADMOB 18:50 → OBS 21:00 → UNDODISOB 02-24 17:05
PROVIDERS: ADMIT Student in an Organized Health Care Education/Training Program; ATTEND Student in an Organized Health Care Education/Training Program
DX: I16.1 Hypertensive emergency (principal); I10 Essential (primary) hypertension; Z85.3 Personal history of malignant neoplasm of breast; Z90.10 Acquired absence of unspecified breast and nipple; Z91.041 Radiographic dye allergy status; Z91.018 Allergy to other foods
CPT/HCPCS: 71045; 71046; 78451; 80053; 83880; 84484 ×2; 85025; 85379; 99285; A9540; J1650; 36415